=== PATIENT | male | born 1945 | race Caucasian/White ===

== ENCOUNTER → 2016-06-09 | Outpatient (CLI) | payer MEDICARE, OTHER ==
[~2016-06-09] MED LIST: HYDR12.56 PO; PRIN10TA PO
[2016-06-09 13:16] LABS: HEMATOCRIT 42.4 % (39.0-51.0); MEAN CELL VOLUME 90.2 FL (80.0-100.0); MEAN CORPUSCULAR HEMOGLOBIN 30.1 PG (27.0-34.0); MEAN CORPUSCULAR HGB CONC 33.4 % (32.0-36.0); PLATELET COUNT 264 TH/MM3 (150-450); RED CELL DISTRIBUTION WIDTH 13.9 % (11.6-17.2); REVIEW FLAG FINAL; WHITE BLOOD COUNT 10.1 TH/MM3 (4.0-11.0)
[2016-06-09 13:50] LABS: ALKALINE PHOSPHATASE 62 U/L (45-117); ALT (GPT) 17 U/L (12-78); ANION GAP 6 MEQ/L (5-15); AST (GOT) 15 U/L (15-37); BICARBONATE 29.9 MEQ/L (21.0-32.0); BLOOD UREA NITROGEN 21 MG/DL (7-18); CHLORIDE 105 MEQ/L (98-107); GLOMERULAR FILTRATION RATE 61 ML/MIN (>89); GLUCOSE,FASTING 86 MG/DL (74-99); LDL CHOLESTEROL 76 MG/DL (0-99); LDL CHOLESTEROL DIRECT 87 MG/DL (0-99); POTASSIUM 3.7 MEQ/L (3.5-5.1); SODIUM (NA) 141 MEQ/L (136-145); TOTAL BILIRUBIN ADULT 0.6 MG/DL (0.2-1.0)
[2016-06-09 14:30] LABS: HEMOGLOBIN A1a 0.8 %; HEMOGLOBIN A1b 1.9 %; HEMOGLOBIN Ao 84.5 %; HEMOGLOBIN LA1C 2.2 %; HEMOGLOBIN P3 4.2 %
== END ==
LOC: PLAB 09:53
PROVIDERS: ATTEND Family Medicine
DX: R53.83 Other fatigue (principal); E78.2 Mixed hyperlipidemia; I10 Essential (primary) hypertension; R73.01 Impaired fasting glucose; I73.9 Peripheral vascular disease, unspecified
CPT/HCPCS: 36415; 80053; 80061; 83036; 83721; 84443; 85027

== ENCOUNTER → 2016-06-22 | Outpatient (CLI) | payer MEDICARE, OTHER ==
[2016-06-22 17:13] LABS: HEMATOCRIT 44.2 % (39.0-51.0); MEAN CELL VOLUME 90.6 FL (80.0-100.0); MEAN CORPUSCULAR HEMOGLOBIN 30.3 PG (27.0-34.0); MEAN CORPUSCULAR HGB CONC 33.5 % (32.0-36.0); PLATELET COUNT 264 TH/MM3 (150-450); RED BLOOD COUNT 4.88 MIL/MM3 (4.50-5.90); RED CELL DISTRIBUTION WIDTH 13.9 % (11.6-17.2); REVIEW FLAG FINAL; WHITE BLOOD COUNT 6.6 TH/MM3 (4.0-11.0)
[2016-06-22 17:22] LABS: ALT (GPT) 17 U/L (12-78); ANION GAP 6 MEQ/L (5-15); AST (GOT) 19 U/L (15-37); BICARBONATE 29.3 MEQ/L (21.0-32.0); BLOOD UREA NITROGEN 13 MG/DL (7-18); CHLORIDE 106 MEQ/L (98-107); GLOMERULAR FILTRATION RATE 59 ML/MIN (>89); GLUCOSE,FASTING 87 MG/DL (74-99); POTASSIUM 4.2 MEQ/L (3.5-5.1); SODIUM (NA) 141 MEQ/L (136-145)
[2016-06-22 17:24] LABS: ALKALINE PHOSPHATASE 70 U/L (45-117); LDL CHOLESTEROL 80 MG/DL (0-99); LDL CHOLESTEROL DIRECT 91 MG/DL (0-99)
== END ==
LOC: PLAB 12:03
PROVIDERS: ATTEND Family Medicine
DX: E78.5 Hyperlipidemia, unspecified (principal); I10 Essential (primary) hypertension; I73.9 Peripheral vascular disease, unspecified
CPT/HCPCS: 36415; 80053; 80061; 83721; 85027

== ENCOUNTER 2017-11-20 11:38 | Inpatient (IN) ==
--- NOTE | 2017-11-20 12:28 | ED ---
HPI General Chief Complaint: Shortness of Breath/Dyspnea Stated Complaint: Sob Time Seen by Provider: 11/20/17 12:25 Source: patient Mode of arrival: ambulatory Limitations: no limitations History of Present Illness 72-year-old male patient with history of hypertension, CHF, CABG 3 2 months ago , had been taken off of his Lasix a week ago, presents to the ER today with 2 days history of worsening dyspnea on exertion, orthopnea, using 2 pillows, shortness of breath. He denies any fevers, chest pains, or other symptoms. He states it feels a little bit like how he was feeling before the surgery. Related Data Home Medications Medication Instructions Recorded Confirmed atorvastatin 10 mg PO DAILY 11/20/17 11/20/17 lisinopril 5 mg PO DAILY 11/20/17 11/20/17 Allergies Allergy/AdvReac Type Severity Reaction Status Date / Time No Known Allergies AdvReac Unknown Uncoded 08/18/17 15:50 Review of Systems ROS: all other systems reviewed are negative [facility] Medical History Medical History COPD (chronic obstructive pulmonary disease) (Acute) Congestive heart failure (Acute) Depression (Acute) HTN (hypertension) (Acute) Hypercholesteremia (Acute) PAD (peripheral artery disease) (Acute) Prediabetes (Acute) Surgical History Surgical History H/O Achilles tendon repair (Acute) Hx of tonsillectomy (Acute) Status post insertion of iliac artery stent (Acute) Social History Social History Substance History: Past History Second Hand Smoke Exposure: No Smoking Status: Former smoker Tobacco Type: Cigarettes How Often Do You Have a Drink Containing Alcohol: 2 to 3 times a week Recent Travel in [facility] within the Last 8 Weeks: No Recent Out of Country Travel within the Last 8 Weeks: No Substance Abuse Detail Marijuana: Substance Use Status: Early Remission Crack/Cocaine: Substance Use Status: Sustained Remission Immunization History Tetanus Immunization: Unsure Hx Influenza Vaccine This Season: No Exam Narrative Exam Narrative: GENERAL: Well-developed elderly white male patient currently in mild respiratory distress. Awake and oriented 3. SKIN: Focused skin assessment warm/dry. HEAD: Atraumatic. Normocephalic. EYES: Pupils equal and round. No scleral icterus. No injection or drainage. ENT: No nasal bleeding or discharge. Mucous membranes pink and moist. NECK: Trachea midline. No JVD. CARDIOVASCULAR: Regular rate and rhythm. No murmur appreciated. RESPIRATORY: Mild accessory muscle use. Bibasilar crackles. Breath sounds equal bilaterally. GASTROINTESTINAL: Abdomen soft, non-tender, nondistended. Hepatic and splenic margins not palpable. MUSCULOSKELETAL: No obvious deformities. No clubbing. No cyanosis. Trace bilateral pitting edema. NEUROLOGICAL: Awake and alert. No obvious cranial nerve deficits. Motor grossly within normal limits. Normal speech. PSYCHIATRIC: Appropriate mood and affect; insight and judgment normal. Course Initial Documented Vital Signs Temperature 98.0 F 11/20/17 11:48 Pulse Rate 92 H 11/20/17 11:48 Respiratory Rate 18 11/20/17 11:48 Blood Pressure 168/83 H 11/20/17 11:48 Pulse Oximetry 94 L 11/20/17 11:48 Last Documented Vital Signs Temperature 98.0 F 11/20/17 11:48 Pulse Rate 86 11/20/17 12:13 Respiratory Rate 18 11/20/17 12:13 Blood Pressure 192/90 H 11/20/17 12:13 Pulse Oximetry 97 11/20/17 12:30 Medical Decision Making MDM Narrative Medical decision making narrative: Chest x-ray is concerning for underlying CHF , BNP is 4000. Lasix was given in the ER. Planning to admit for further evaluation and treatment. Case is discussed with Dr. Mcbride for admission. Medical Screen Exam Complete: Yes Emergency Medical Condition: Yes Differential Diagnosis Differential Diagnosis: CHF exacerbation versus pneumonia versus COPD exacerbation Lab Data Lab results reviewed: Yes I reviewed the patient's lab results. Result diagrams: 11/20/17 12:15 11/20/17 12:15 Lab Results 11/20/17 11/20/17 11/20/17 Range/Units 12:15 12:15 12:15 WBC 8.8 (4.0-11.0) th/mm3 RBC 4.68 (4.50-5.90) mil/mm3 Hgb 14.3 (13.0-17.0) gm/dL Hct 43.0 (39.0-51.0) % MCV 91.9 (80.0-100.0) fL MCH 30.6 (27.0-34.0) pg MCHC 33.3 (32.0-36.0) % RDW 16.0 (11.6-17.2) % Plt Count 259 (150-450) th/mm3 MPV 9.7 (7.0-11.0) fL Neut % (Auto) 84.3 H (16.0-70.0) % Lymph % (Auto) 6.3 L (9.0-44.0) % [place] % (Auto) 8.3 H (0.0-8.0) % Eos % (Auto) 0.7 (0.0-4.0) % Baso % (Auto) 0.4 (0.0-2.0) % Neut # (Auto) 7.4 (1.8-7.7) th/mm3 Lymph # (Auto) 0.6 L (1.0-4.8) th/mm3 [place] # (Auto) 0.7 (0.0-0.9) th/mm3 Eos # (Auto) 0.1 (0.0-0.4) th/mm3 Baso # (Auto) 0.0 (0.0-0.2) th/mm3 WBC Differential . Differential Comment Auto diff final Sodium 143 (136-145) meq/L Potassium 4.0 (3.5-5.1) meq/L Chloride 112 H (98-107) meq/L Carbon Dioxide 24.1 (21.0-32.0) meq/L Anion Gap 7 (5-15) meq/L BUN 20 H (7-18) mg/dL Creatinine 1.04 (0.60-1.30) mg/dL Estimated GFR 70 L (>89) mL/min Random Glucose 102 (74-106) mg/dL Calcium 8.9 (8.5-10.1) mg/dL Total Bilirubin 1.0 (0.2-1.0) mg/dL AST 21 (15-37) U/L ALT 21 (12-78) U/L Alkaline Phosphatase 83 (45-117) U/L Troponin I 0.07 H (0.02-0.05) ng/mL B-Natriuretic Peptide 4363 H (0-100) pg/mL Total Protein 7.0 (6.4-8.2) g/dL Albumin 3.5 (3.4-5.0) g/dL Imaging Data Attestation: I personally reviewed and interpreted this imaging study as follows : Radiologist's impression: Chest X-Ray 11/20/17 12:04 CONCLUSION: Bibasilar infiltrates and effusions Discharge Plan Discharge Disposition Patient Disposition: 30 Still Patient Discharge Condition Condition: Stable Discharge Details Anticipated Discharge Date: 11/20/17 Diagnosis: CHF (congestive heart failure) Physicians Team ED Provider: Flor Weaver Primary Care Provider: Wilfredo Tsang Attending Provider: Kate Rivera Discharge Interventions Interventions: Vital Signs Last Done: 11/20/17 12:13 Status ED Status: Admitted Patient
[2017-11-20 12:30] LABS: Baso % (Auto) 0.4 % (0.0-2.0); Eos # (Auto) 0.1 th/mm3 (0.0-0.4); Eos % (Auto) 0.7 % (0.0-4.0); Hemoglobin 14.3 gm/dL (13.0-17.0); Lymph # (Auto) 0.6 th/mm3 (1.0-4.8); Lymph % (Auto) 6.3 % (9.0-44.0); Mean Corpuscular HGB Conc 33.3 % (32.0-36.0); Mean Corpuscular Hemoglobin 30.6 pg (27.0-34.0); Mean Corpuscular Volume 91.9 fL (80.0-100.0); Mean Platelet Volume 9.7 fL (7.0-11.0); Mono # (Auto) 0.7 th/mm3 (0.0-0.9); Mono % (Auto) 8.3 % (0.0-8.0); Neut # (Auto) 7.4 th/mm3 (1.8-7.7); Neut % (Auto) 84.3 % (16.0-70.0); Platelet Count 259 th/mm3 (150-450); Red Blood Count 4.68 mil/mm3 (4.50-5.90); White Blood Count 8.8 th/mm3 (4.0-11.0)
[2017-11-20 12:43] LABS: Alanine Aminotransferase 21 U/L (12-78); Albumin 3.5 g/dL (3.4-5.0); Anion Gap 7 meq/L (5-15); Aspartate Aminotransferase 21 U/L (15-37); Blood Urea Nitrogen 20 mg/dL (7-18); Calcium 8.9 mg/dL (8.5-10.1); Carbon Dioxide 24.1 meq/L (21.0-32.0); Chloride 112 meq/L (98-107); Glomerular Filtration Rate 70 mL/min (>89); Glucose,Random 102 mg/dL (74-106); Sodium 143 meq/L (136-145)
[2017-11-20 12:47] LABS: Alkaline Phosphatase 83 U/L (45-117); Troponin I 0.07 ng/mL (0.02-0.05)
--- NOTE | 2017-11-20 12:54 | XR ---
EXAM DATE: 11/20/2017 12:49 PM EDT AGE/SEX: 72 years / Male INDICATIONS: Short of breath. CLINICAL DATA: This is the patient's initial encounter. Patient reports that signs and symptoms have been present for 2 days and indicates a pain score of 0/10. MEDICAL/SURGICAL HISTORY: . Hypertension. Chronic obstructive pulmonary disease. Hypercholester olemia. CABG. Triple bypass 2 months ago. COMPARISON: [facility] – [place], CHEST SINGLE AP, 08/31/2017. . FINDINGS: Mild bibasilar infiltrates are present with small associated effusions. Cardiac contours are grossly stable. CONCLUSION: Bibasilar infiltrates and effusions Electronically signed by: Curtis Hill MD 11/20/2017 12:53 PM EDT
--- NOTE | 2017-11-20 15:31 | P.HPIM ---
History of Present Illness Service: [facility] hospitalist Primary Care Physician: Wilfredo Tsang MD Chief Complaint: Shortness of breath History of Present Illness: 71-year-old male with a medical history significant for coronary artery disease status post CABG 3 months ago, CHF, hypertension, hyperlipidemia. The patient was discharged 3 months ago after CABG with a LifeVest. Patient was discharged on amiodarone, lisinopril, metoprolol, and Lasix. He reports that he has been feeling well and was taken off metoprolol and Lasix about a week ago. Over the past 2 days, he has been getting progressively short of breath which prompted the emergency room visit. Regarding his LifeVest, he reports that he wears it at night and whenever he goes out. He has not had a follow-up with cardiology since discharge from the hospital. Currently he denies chest pressure. Workup in the emergency room consisted with acute systolic CHF. He has been given Lasix in the emergency room. - Diagnosis (1) Acute on chronic systolic CHF (congestive heart failure) (2) Hypertension (3) CAD (coronary artery disease) (4) CHF (congestive heart failure) Inpatient Certification: I certify that the inpatient services were ordered in accordance with Medicare regulations governing the order. This includes certification that hospital inpatient services are reasonable and necessary and in the case of services not specified as inpatient-only under 42 CFR 419.22(n), that they are appropriately provided as inpatient services in accordance to with the 2-midnight benchmark under 43 CFR 412.3(e) Estimated Total Length of Stay (Days): 3 Plans for Post Hospital Care: Home Review of Systems All other systems reviewed negative except as stated in HPI Cardiovascular: Reports leg swelling, Reports shortness of breath when lying down Respiratory: Reports shortness of breath PMFSH - History History Provided By: Patient - Medical History Medical History: Medical History (Last Reviewed 11/20/17 @ 15:31 by Kate Rivera MD) COPD (chronic obstructive pulmonary disease) Congestive heart failure Depression HTN (hypertension) Hypercholesteremia PAD (peripheral artery disease) Prediabetes - Surgical History Surgical History: Surgical History (Last Reviewed 11/20/17 @ 15:31 by Kate Rivera MD) H/O Achilles tendon repair History of coronary artery bypass graft x 3 Hx of tonsillectomy Status post insertion of iliac artery stent - Family History Family History: Family History (Last Updated 11/20/17 @ 15:31 by Kate Rivera MD) Other Family history non-contributory - Tobacco History Second Hand Smoke Exposure: No Tobacco Use In Past 30 Days: Yes Smoking Status: Former smoker Tobacco Type: Cigarettes - Alcohol History How Often Do You Have a Drink Containing Alcohol: 2 to 3 times a week - Substance Use History Substance History: Past History - Substance Use Type 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 - Travel History Recent Travel in the [place] Within the Last 8 Weeks: No Recent Travel Out of the Country Within the Last 8 Weeks: No - Immunization History Tetanus Immunization: Unsure Hx Influenza Vaccine This Season: No Medications and Allergies Active Medications: Active Medications Atorvastatin Calcium (Lipitor) 10 mg PO DAILY KENROY Enalaprilat (Vasotec Inj) 1.25 mg IV.PUSH Q6H PRN PRN Reason: SEE LABEL COMMENTS Furosemide (Lasix Inj) 40 mg IV.PUSH BID@0900,1800 K[facility]Y Heparin Sodium (Porcine) (Heparin Inj) 5,000 units SQ Q12H K[facility]Y Lisinopril (Prinivil) 5 mg PO DAILY K[facility]ROY Lisinopril (Prinivil) 5 mg PO ONCE ONE Stop: 11/20/17 14:18 Metoprolol Tartrate (Lopressor) 25 mg PO BID K[facility]ROY Potassium Chloride (Kcl) 10 meq PO BID KENROY Sodium Chloride (Ns Flush) 2 ml IV.FLUSH BID KENROY Sodium Chloride (Ns Flush) 2 ml IV.FLUSH UNSCH PRN PRN Reason: FLUSH AFTER USING IV ACCESS Allergies Allergy/AdvReac Type Severity Reaction Status Date / Time No Known Allergies AdvReac Unknown Uncoded 08/18/17 15:50 Home Medications Medication Instructions Recorded Confirmed Type atorvastatin 10 mg PO DAILY 11/20/17 11/20/17 History lisinopril 5 mg PO DAILY 11/20/17 11/20/17 History Exam Vital signs: Vital Signs 11/20/17 11:48 11/20/17 12:13 11/20/17 12:30 Temperature 98.0 F Pulse Rate 92 H 78 Respiratory Rate 18 18 Blood Pressure 168/83 H 192/90 H Pulse Oximetry 94 L 97 97 11/20/17 14:12 Temperature Pulse Rate 82 Respiratory Rate 18 Blood Pressure 184/100 H Pulse Oximetry Intake & Output 11/19/17 11/20/17 11/20/17 18:59 06:59 18:59 Weight 58.967 kg Narrative: CONSTITUTIONAL/GENERAL: This is an adequately nourished patient, in no apparent distress. Vital signs reviewed SKIN: No jaundice, rashes, or concerning lesions. Not diaphoretic. HEAD: Atraumatic. Normocephalic. EYES: Pupils equal and round and reactive. Extra ocular motions are intact. No scleral icterus. No injection or drainage. ENT: Hearing grossly normal. Nose without drainage. Throat without visible erythema, exudates, masses, or lesions. NECK: Trachea midline. Neck is supple, non-tender. No palpable thyroid enlargement or nodularity. CARDIOVASCULAR: Normal rate and regular rhythm without murmurs, gallops, or rubs. No JVD. Peripheral pulses 2+ and symmetric. RESPIRATORY/CHEST: Symmetric, unlabored respirations. Bilateral basilar crackles. No wheezing. GASTROINTESTINAL: Abdomen soft, non-tender, non-distended. No hepato- splenomegaly, or palpable masses. No guarding. Bowel sounds present. MUSCULOSKELETAL: Extremities without clubbing, cyanosis, or edema. No joint tenderness or effusion noted. No calf tenderness. No mottling or clubbing. NEUROLOGICAL: Awake and alert. Motor and sensory grossly within normal limits. Follows commands. Move all extremities spontaneously. No focal deficits. PSYCHIATRIC: No obvious mood problems. No apparent hallucinations or other psychotic thought process. Results - Labs CBC & Chem 7: 11/20/17 12:15 11/20/17 12:15 Labs: Short CBC 11/20/17 Range/Units 12:15 WBC 8.8 (4.0-11.0) th/mm3 Hgb 14.3 (13.0-17.0) gm/dL Hct 43.0 (39.0-51.0) % Plt Count 259 (150-450) th/mm3 BMP 11/20/17 12:15 Sodium 143 Potassium 4.0 Chloride 112 H Carbon Dioxide 24.1 BUN 20 H Creatinine 1.04 Calcium 8.9 Cardiac Enzymes 11/20/17 Range/Units 12:15 Troponin I 0.07 H (0.02-0.05) ng/mL Liver Function 11/20/17 Range/Units 12:15 Total Bilirubin 1.0 (0.2-1.0) mg/dL AST 21 (15-37) U/L ALT 21 (12-78) U/L Alkaline Phosphatase 83 (45-117) U/L Albumin 3.5 (3.4-5.0) g/dL - Imaging Impressions Chest X-Ray 11/20/17 12:04 CONCLUSION: Bibasilar infiltrates and effusions Caprini VTE Risk Assessment Caprini VTE Risk Assessment: Moderate/High Risk (score >= 2) Caprini Risk Assessment Model: Point Value = 1 Point Value = 2 Point Value = 3 Point Value = 5 Age 41-60 Minor surgery BMI > 25 kg/m2 Swollen legs Varicose veins or History of unexplained or recurrent spontaneous Oral contraceptives or hormone replacement Sepsis (< 1 month) Serious lung disease, including pneumonia (< 1 month) Abnormal pulmonary function Acute myocardial infarction Congestive heart failure (< 1 month) History of inflammatory bowel disease Medical patient at bed rest Age 61-74 Arthroscopic surgery Major open surgery (> 45 min) Laparoscopic surgery (> 45 min) Malignancy Confined to bed (> 72 hours) Immobilizing plaster cast Central venous access Age >= 75 History of VTE Family history of VTE Factor V Leiden Prothrombin [id number] Lupus anticoagulant Anticardiolipin antibodies Elevated serum homocysteine Heparin-induced thrombocytopenia Other congenital or acquired thrombophilia Stroke (< 1 month) Elective arthroplasty Hip, pelvis, or leg fracture Acute spinal cord injury (< 1 month) Prophylaxis Regimen: Total Risk Factor Score Risk Level Prophylaxis Regimen 0-1 Low Early ambulation 2 Moderate Order ONE of the following: *Sequential Compression Device (SCD) *Heparin 5000 units SQ BID 3-4 Higher Order ONE of the following medications: *Heparin 5000 units SQ TID *Enoxaparin/Lovenox 40 mg SQ daily (WT < 150 kg, CrCl > 30 mL/min) *Enoxaparin/Lovenox 30 mg SQ daily (WT < 150 kg, CrCl > 10-29 mL/min) *Enoxaparin/Lovenox 30 mg SQ BID (WT < 150 kg, CrCl > 30 mL/min) AND/OR *Sequential Compression Device (SCD) 5 or more Highest Order ONE of the following medications: *Heparin 5000 units SQ TID (Preferred with Epidurals) *Enoxaparin/Lovenox 40 mg SQ daily (WT < 150 kg, CrCl > 30 mL/min) *Enoxaparin/Lovenox 30 mg SQ daily (WT < 150 kg, CrCl > 10-29 mL/min) *Enoxaparin/Lovenox 30 mg SQ BID (WT < 150 kg, CrCl > 30 mL/min) AND *Sequential Compression Device (SCD) Assessment and Plan - Assessment (1) Acute on chronic systolic CHF (congestive heart failure) Code(s): I50.23 - Acute on chronic systolic (congestive) heart failure Status : Acute (2) Hypertension Code(s): I10 - Essential (primary) hypertension Status: Acute (3) CAD (coronary artery disease) Code(s): I25.10 - Atherosclerotic heart disease of [place] coronary artery without angina pectoris Status: Acute (4) CHF (congestive heart failure) Code(s): I50.9 - Heart failure, unspecified Status: Acute - Plan 72-year-old male with: Acute on chronic systolic CHF/History of CABGX3: Patient states his primary care physician took him off Lasix, metoprolol about a week ago. -Lasix IV 40 mg twice daily -Supplemental oxygen as needed -Restart metoprolol 25 mg twice daily. Lisinopril 5 mg daily. Continue statin -Patient has a LifeVest. Advised him to be compliant. -Consult his biochemical engineer Dr. whitaker. Accelerated hypertension: -Patient restarted on metoprolol and Lasix. Continue lisinopril. -Vasotec as needed. -Monitor trend and adjust antihypertensives as needed. GI prophylaxis: Stool softener PRN constipation. DVT PPx: Heparin Discussed Condition With: Dr. Godinez, ER physician
[2017-11-20] MEDS ORDERED: Lisinopril 5 MG Tablet PO ONE (16:00)
[2017-11-20] MEDS: Heparin - SQ 10,000 UNITS/ML Vial SQ SCH (16:53)
[2017-11-20] MEDS: Potassium Chloride 10 MEQ ER Capsule PO SCH (21:11)
[2017-11-20] MEDS: Metoprolol Tartrate 25 MG Tablet PO SCH (21:11)
[2017-11-21] MEDS: Heparin - SQ 10,000 UNITS/ML Vial SQ SCH ×2 (04:20→16:22)
[2017-11-21] MEDS ORDERED: Lisinopril 5 MG Tablet PO SCH (09:00)
--- NOTE | 2017-11-21 09:36 | P.PNIM ---
Subjective Interval history: Patient is significantly better today. He reports he is breathing much more comfortable with ambulation. Physical Exam Vital signs: Vital Signs 11/20/17 11:48 11/20/17 12:13 11/20/17 12:30 Temperature 98.0 F Pulse Rate 92 H 78 Respiratory Rate 18 18 Blood Pressure 168/83 H 192/90 H Pulse Oximetry 94 L 97 97 11/20/17 14:12 11/20/17 15:00 11/20/17 20:00 Temperature 97.8 F Pulse Rate 82 83 70 Respiratory Rate 18 18 16 Blood Pressure 184/100 H 194/95 H 154/81 H Pulse Oximetry 95 11/21/17 00:00 11/21/17 00:42 11/21/17 01:26 Temperature 97.9 F Pulse Rate 71 68 73 Respiratory Rate 16 Blood Pressure 127/72 Pulse Oximetry 11/21/17 02:00 11/21/17 03:00 11/21/17 04:00 Temperature 97.8 F Pulse Rate 69 69 64 Respiratory Rate 16 Blood Pressure 139/83 Pulse Oximetry 11/21/17 05:00 11/21/17 06:00 11/21/17 07:00 Temperature 97.9 F Pulse Rate 76 70 75 Respiratory Rate 16 Blood Pressure 138/82 Pulse Oximetry 94 L 11/21/17 08:00 Temperature Pulse Rate Respiratory Rate Blood Pressure Pulse Oximetry 94 L Intake & Output 11/20/17 11/21/17 11/21/17 18:59 06:59 18:59 Output Total 350 / 350 Balance -350 / -350 Weight 58.967 kg 63 kg Output: Urine 350 / 350 Other: # Voids 2 Date of Last Bowel Movement 11/21/17 Results - Labs CBC & Chem 7: 11/20/17 12:15 11/20/17 12:15 Laboratory Results - last 24 hr 11/20/17 11/20/17 11/20/17 12:15 12:15 12:15 WBC 8.8 RBC 4.68 Hgb 14.3 Hct 43.0 MCV 91.9 MCH 30.6 MCHC 33.3 RDW 16.0 Plt Count 259 MPV 9.7 Neut % (Auto) 84.3 H Lymph % (Auto) 6.3 L [place] % (Auto) 8.3 H Eos % (Auto) 0.7 Baso % (Auto) 0.4 Neut # (Auto) 7.4 Lymph # (Auto) 0.6 L [place] # (Auto) 0.7 Eos # (Auto) 0.1 Baso # (Auto) 0.0 WBC Differential . Differential Comment Auto diff final Sodium 143 Potassium 4.0 Chloride 112 H Carbon Dioxide 24.1 Anion Gap 7 BUN 20 H Creatinine 1.04 Estimated GFR 70 L Random Glucose 102 Calcium 8.9 Total Bilirubin 1.0 AST 21 ALT 21 Alkaline Phosphatase 83 Troponin I 0.07 H B-Natriuretic Peptide 4363 H Total Protein 7.0 Albumin 3.5 - Imaging Impressions Chest X-Ray 11/20/17 12:04 CONCLUSION: Bibasilar infiltrates and effusions Assessment and Plan - Assessment (1) Acute on chronic systolic CHF (congestive heart failure) Code(s): I50.23 - Acute on chronic systolic (congestive) heart failure Status : Acute (2) Hypertension Code(s): I10 - Essential (primary) hypertension Status: Acute (3) CAD (coronary artery disease) Code(s): I25.10 - Atherosclerotic heart disease of [place] coronary artery without angina pectoris Status: Acute (4) CHF (congestive heart failure) Code(s): I50.9 - Heart failure, unspecified Status: Acute - Plan 72-year-old male with: Acute on chronic systolic CHF/History of CABGX3: Patient states his primary care physician took him off Lasix, metoprolol about a week ago. -Continue Lasix IV 40 mg twice daily. Good response -Supplemental oxygen as needed -Restarted metoprolol 25 mg twice daily. Lisinopril 5 mg daily. Continue statin -Patient has a LifeVest. Advised him to be compliant. -Awaiting [employer] input, Dr. Jarrell. Accelerated hypertension: -Patient restarted on metoprolol and Lasix. Continue lisinopril. -Vasotec as needed. -Monitor trend and adjust antihypertensives as needed. - BP currently adequate GI prophylaxis: Stool softener PRN constipation. DVT PPx: Heparin Discharge Planning: Awaiting input from Cardiology.
[2017-11-21] MEDS: Metoprolol Tartrate 25 MG Tablet PO SCH ×2 (09:52→21:09)
[2017-11-21] MEDS: Potassium Chloride 10 MEQ ER Capsule PO SCH ×2 (09:52→21:08)
--- NOTE | 2017-11-21 15:25 | P.CONCA ---
History of Present Illness Service: Cardiology Consult date: 11/21/17 Requesting Physician: Kate Rivera Reason for Consult: Acute on chronic congestive heart failure Primary Care Provider: Wilfredo Tsang MD Chief Complaint: Shortness of breath History of Present Illness: This is a 71-year-old male with a medical history of coronary artery disease, status post CABG 3 months ago, congestive heart failure, hypertension and hyperlipidemia. When he was discharged 3 months ago, post CABG, he was sent home with a LifeVest, but he states he only wears it at night or when he goes out. He states that approximately a week ago his primary care doctor took him off metoprolol and Lasix and over the last 2 days he has been getting progressively short of breath, he decided to go to the emergency department for further evaluation. Review of Systems All other systems reviewed negative except as stated in HPI PMFSH - History History Provided By: Patient - Medical History Medical History: Medical History (Last Reviewed 11/20/17 @ 15:31 by Kate Rivera MD) COPD (chronic obstructive pulmonary disease) Congestive heart failure Depression HTN (hypertension) Hypercholesteremia PAD (peripheral artery disease) Prediabetes - Surgical History Surgical History: Surgical History (Last Reviewed 11/20/17 @ 15:31 by Kate Rivera MD) H/O Achilles tendon repair History of coronary artery bypass graft x 3 Hx of tonsillectomy Status post insertion of iliac artery stent - Family History Family History: Family History (Last Updated 11/20/17 @ 15:31 by Kate Rivera MD) Other Family history non-contributory - Tobacco History Second Hand Smoke Exposure: No Tobacco Use In Past 30 Days: Yes Smoking Status: Former smoker Tobacco Type: Cigarettes - Alcohol History How Often Do You Have a Drink Containing Alcohol: 2 to 3 times a week - Substance Use History Substance History: Past History - Substance Use Type 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 - Travel History Recent Travel in the [place] Within the Last 8 Weeks: No Recent Travel Out of the Country Within the Last 8 Weeks: No - Immunization History Tetanus Immunization: Unsure Hx Influenza Vaccine This Season: No Medications and Allergies Allergies Allergy/AdvReac Type Severity Reaction Status Date / Time No Known Allergies AdvReac Unknown Uncoded 08/18/17 15:50 Home Medications Medication Instructions Recorded Confirmed Type atorvastatin 10 mg PO DAILY 11/20/17 11/20/17 History lisinopril 5 mg PO DAILY 11/20/17 11/20/17 History Active Medications: Active Medications Atorvastatin Calcium (Lipitor) 10 mg PO DAILY [facility] Last Admin: 11/21/17 09:52 Dose: 10 mg Furosemide (Lasix Inj) 40 mg IV.PUSH BID@0900,1800 [facility] Last Admin: 11/21/17 09:56 Dose: 40 mg Heparin Sodium (Porcine) (Heparin Inj) 5,000 units SQ Q12H [facility] Last Admin: 11/21/17 04:20 Dose: 5,000 units Losartan Potassium (Cozaar) 25 mg PO ONCE ONE Stop: 11/22/17 09:01 Metoprolol Tartrate (Lopressor) 25 mg PO BID [facility] Last Admin: 11/21/17 09:52 Dose: 25 mg Potassium Chloride (Kcl) 10 meq PO BID [facility] Last Admin: 11/21/17 09:52 Dose: 10 meq Sacubitril/Valsartan (Entresto 24 Mg/26 Mg Tablet) 1 tab PO BID [facility] Sodium Chloride (Ns Flush) 2 ml IV.FLUSH BID [facility] Last Admin: 11/21/17 09:53 Dose: 2 ml Sodium Chloride (Ns Flush) 2 ml IV.FLUSH UNSCH PRN PRN Reason: FLUSH AFTER USING IV ACCESS Exam Vital signs: Vital Signs 11/20/17 20:00 11/21/17 00:00 11/21/17 00:42 Temperature 97.8 F 97.9 F Pulse Rate 70 71 68 Respiratory Rate 16 16 Blood Pressure 154/81 H 127/72 Pulse Oximetry 95 11/21/17 01:26 11/21/17 02:00 11/21/17 03:00 Temperature 97.8 F Pulse Rate 73 69 69 Respiratory Rate 16 Blood Pressure 139/83 Pulse Oximetry 11/21/17 04:00 11/21/17 05:00 11/21/17 06:00 Temperature Pulse Rate 64 76 70 Respiratory Rate Blood Pressure Pulse Oximetry 11/21/17 07:00 11/21/17 08:00 11/21/17 09:00 Temperature 97.9 F Pulse Rate 75 63 55 L Respiratory Rate 16 Blood Pressure 138/82 Pulse Oximetry 94 L 94 L 11/21/17 10:00 11/21/17 11:00 11/21/17 12:00 Temperature 98 F Pulse Rate 69 65 65 Respiratory Rate 16 Blood Pressure 111/60 Pulse Oximetry 97 11/21/17 13:00 Temperature Pulse Rate 62 Respiratory Rate Blood Pressure Pulse Oximetry Intake & Output 11/20/17 11/21/17 11/21/17 18:59 06:59 18:59 Output Total 350 / 350 Balance -350 / -350 Weight 58.967 kg 63 kg Output: Urine 350 / 350 Other: # Voids 2 Date of Last Bowel Movement 11/21/17 - Constitutional no acute distress - Routine HEENT Exam Head: Present: normocephalic Eye: Present: PERRL ENT: Present: mucous membranes moist - Routine Neck Exam Present: full ROM - Routine Respiratory Exam Present: CTA bilaterally - Routine Cardiovascular Exam Present: S1, S2. Absent: murmur, gallop, rubs, S3, S4 - Routine Abdominal Exam Present: soft, normoactive bowel sounds - Routine Extremities Exam Present: full ROM, pulses intact, normal capillary refill. Absent: cyanosis, clubbing, edema - Routine Skin Exam Present: intact - Routine Neurological Exam Present: oriented X3 Results 11/20/17 12:15 11/20/17 12:15 Intake and Output 11/21/17 11/21/17 11/21/17 06:59 14:59 22:59 Output Total 350 / 350 Balance -350 / -350 Output: Urine 350 / 350 Other: # Voids 2 Date of Last Bowel Movement 11/21/17 Weight 63 kg Assessment and Plan - Assessment (1) CHF (congestive heart failure) Code(s): I50.9 - Heart failure, unspecified Status: Acute (2) Hypertension Code(s): I10 - Essential (primary) hypertension Status: Acute (3) CAD (coronary artery disease) Code(s): I25.10 - Atherosclerotic heart disease of [place] coronary artery without angina pectoris Status: Acute (4) Acute on chronic systolic CHF (congestive heart failure) Code(s): I50.23 - Acute on chronic systolic (congestive) heart failure Status : Acute - Plan Due to patient having congestive heart failure, will get a 2D echo to evaluate left ventricular function. We will start patient on therapy for congestive heart failure by discontinuing the lisinopril today, give losartan tomorrow then on 23 November start him on entresto after 36 hour washout from the lisinopril. Patient has already been restarted on his metoprolol and Lasix. Obtain baseline kidney function. We will continue with cardiac treatment plan and adjust as needed. We will follow during hospitalization. The patient was seen and evaluated by Dr. Duncan who participated in care, management and decision-making. - Attending Attestation Patient seen and examined. I reviewed and agree with the evaluation and plan as presented. Continue and titrate therapy for CHF. Check echo.
--- NOTE | 2017-11-21 19:58 | ECG ---
Date Performed: 11/20/2017 Time Performed: 14:39:46 PTAGE: 72 years EKG: Sinus rhythm WITH OCCASIONAL SUPRAVENTRICULAR PREMATURE COMPLEXES POSSIBLE LEFT ATRIAL ENLARGEMENT BORDERLINE RIG HT AXIS DEVIATION MODERATE INTRAVENTRICULAR CONDUCTION DELAY ST DEVIATION AND MARKED T-WAVE ABNORMALI TY, CONSIDER LATERAL ISCHEMIA ABNORMAL ECG PREVIOUS TRACING :08/24/2017 @04.27 Since the previous tracing, no significant change noted DOCTOR: Stuart Aguilar Interpretating Date/Time 11/21/2017 19:55:01
[2017-11-22] MEDS: Heparin - SQ 10,000 UNITS/ML Vial SQ SCH ×2 (03:16→17:29)
[2017-11-22] MEDS: Potassium Chloride 10 MEQ ER Capsule PO SCH ×2 (08:57→21:31)
[2017-11-22] MEDS: Metoprolol Tartrate 25 MG Tablet PO SCH ×2 (08:58→21:32)
--- NOTE | 2017-11-22 13:51 | P.PNCA ---
Subjective Interval history: Patient denies any chest pain, pressure, palpitations, dizziness, edema or shortness of breath. Physical Exam Vital signs: Vital Signs 11/21/17 14:00 11/21/17 15:00 11/21/17 16:00 Temperature 98.1 F Pulse Rate 64 70 72 Respiratory Rate 17 Blood Pressure 125/82 Pulse Oximetry 96 11/21/17 17:00 11/21/17 17:16 11/21/17 18:00 Temperature Pulse Rate 72 72 Respiratory Rate Blood Pressure Pulse Oximetry 97 11/21/17 19:00 11/21/17 20:00 11/21/17 21:00 Temperature 97.4 F L Pulse Rate 70 70 66 Respiratory Rate 28 H Blood Pressure 150/73 H Pulse Oximetry 94 L 11/21/17 22:00 11/21/17 23:00 11/22/17 00:00 Temperature 97.8 F Pulse Rate 78 75 62 Respiratory Rate 24 Blood Pressure 123/72 Pulse Oximetry 11/22/17 01:00 11/22/17 02:00 11/22/17 03:00 Temperature 98.2 F Pulse Rate 60 71 60 Respiratory Rate 24 Blood Pressure 141/67 H Pulse Oximetry 95 11/22/17 04:00 11/22/17 05:00 11/22/17 06:00 Temperature Pulse Rate 62 66 71 Respiratory Rate Blood Pressure Pulse Oximetry 11/22/17 07:00 11/22/17 09:00 11/22/17 10:00 Temperature 97.5 F L Pulse Rate 62 70 55 L Respiratory Rate 16 Blood Pressure 145/77 H Pulse Oximetry 95 11/22/17 11:00 11/22/17 11:49 11/22/17 12:00 Temperature 98.3 F Pulse Rate 59 L 68 Respiratory Rate 16 Blood Pressure 117/55 L Pulse Oximetry 97 97 11/22/17 12:55 Temperature Pulse Rate 71 Respiratory Rate Blood Pressure Pulse Oximetry Intake & Output 11/21/17 11/22/17 11/22/17 18:59 06:59 18:59 Intake Total 1200 / 1200 720 / 720 Output Total 750 / 750 1400 / 1400 Balance 450 / 450 -680 / -680 Weight 63.5 kg Intake: Oral 1200 / 1200 720 / 720 Output: Urine 750 / 750 1400 / 1400 Other: Date of Last Bowel Movement 11/21/17 - Constitutional no acute distress - Routine HEENT Exam Head: Present: normocephalic Eye: Present: PERRL ENT: Present: mucous membranes moist - Routine Neck Exam Present: full ROM - Routine Respiratory Exam Present: CTA bilaterally - Routine Cardiovascular Exam Present: S1, S2. Absent: gallop, rubs - Routine Abdominal Exam Present: soft - Routine Extremities Exam Present: full ROM, pulses intact, normal capillary refill. Absent: cyanosis, clubbing, edema - Routine Skin Exam Present: intact - Routine Neurological Exam Present: oriented X3 - Detailed Neurological Exam: Coma Scale Eye Opening: Spontaneous Verbal Response: Oriented Motor Response: Obey commands Coleen Coma Scale Total: 15 - Routine Psychiatric Exam Present: normal affect Assessment and Plan - Assessment (1) CHF (congestive heart failure) Code(s): I50.9 - Heart failure, unspecified Status: Acute (2) Hypertension Code(s): I10 - Essential (primary) hypertension Status: Acute (3) CAD (coronary artery disease) Code(s): I25.10 - Atherosclerotic heart disease of [place] coronary artery without angina pectoris Status: Acute (4) Acute on chronic systolic CHF (congestive heart failure) Code(s): I50.23 - Acute on chronic systolic (congestive) heart failure Status : Acute - Plan Continue Life Vest. Continue and titrate tx for CHF. 2D echo has been completed awaiting interpretation. We will continue with cardiac treatment plan and adjust as needed. We will follow during hospitalization. The patient was seen and evaluated by Dr. Duncan who participated in care, management and decision-making. - Attending Attestation Patient seen and examined. I reviewed and agree with the evaluation and plan as presented. Continue tx for CHF.
--- NOTE | 2017-11-22 14:04 | P.PNIM ---
Subjective Interval history: Patient says he is feeling all right. Denies any chest pain shortness of breath. Says he is homeless. Physical Exam Vital signs: Vital Signs 11/21/17 15:00 11/21/17 16:00 11/21/17 17:00 Temperature 98.1 F Pulse Rate 70 72 72 Respiratory Rate 17 Blood Pressure 125/82 Pulse Oximetry 96 11/21/17 17:16 11/21/17 18:00 11/21/17 19:00 Temperature 97.4 F L Pulse Rate 72 70 Respiratory Rate 28 H Blood Pressure 150/73 H Pulse Oximetry 97 11/21/17 20:00 11/21/17 21:00 11/21/17 22:00 Temperature Pulse Rate 70 66 78 Respiratory Rate Blood Pressure Pulse Oximetry 94 L 11/21/17 23:00 11/22/17 00:00 11/22/17 01:00 Temperature 97.8 F Pulse Rate 75 62 60 Respiratory Rate 24 Blood Pressure 123/72 Pulse Oximetry 11/22/17 02:00 11/22/17 03:00 11/22/17 04:00 Temperature 98.2 F Pulse Rate 71 60 62 Respiratory Rate 24 Blood Pressure 141/67 H Pulse Oximetry 95 11/22/17 05:00 11/22/17 06:00 11/22/17 07:00 Temperature 97.5 F L Pulse Rate 66 71 62 Respiratory Rate 16 Blood Pressure 145/77 H Pulse Oximetry 95 11/22/17 09:00 11/22/17 10:00 11/22/17 11:00 Temperature 98.3 F Pulse Rate 70 55 L 59 L Respiratory Rate 16 Blood Pressure 117/55 L Pulse Oximetry 97 11/22/17 11:49 11/22/17 12:00 11/22/17 12:55 Temperature Pulse Rate 68 71 Respiratory Rate Blood Pressure Pulse Oximetry 97 Intake & Output 11/21/17 11/22/17 11/22/17 18:59 06:59 18:59 Intake Total 1200 / 1200 720 / 720 Output Total 750 / 750 1400 / 1400 Balance 450 / 450 -680 / -680 Weight 63.5 kg Intake: Oral 1200 / 1200 720 / 720 Output: Urine 750 / 750 1400 / 1400 Other: Date of Last Bowel Movement 11/21/17 Narrative: GENERAL: Sitting up in bed. Appears comfortable. Alert and oriented 3. SKIN: Warm and dry. HEAD: Normocephalic. EYES: No scleral icterus. No injection or drainage. NECK: Supple, trachea midline. No JVD. CARDIOVASCULAR: Regular rate and rhythm without murmurs, gallops, or rubs. RESPIRATORY: Breath sounds equal bilaterally. No accessory muscle use. GASTROINTESTINAL: Abdomen soft, non-tender, nondistended. MUSCULOSKELETAL: No cyanosis, or edema. BACK: Nontender without obvious deformity. No CVA tenderness. Results - Labs CBC & Chem 7: 11/20/17 12:15 11/20/17 12:15 Assessment and Plan - Assessment (1) Acute on chronic systolic CHF (congestive heart failure) Code(s): I50.23 - Acute on chronic systolic (congestive) heart failure Status : Acute (2) Hypertension Code(s): I10 - Essential (primary) hypertension Status: Acute (3) CAD (coronary artery disease) Code(s): I25.10 - Atherosclerotic heart disease of [place] coronary artery without angina pectoris Status: Acute (4) CHF (congestive heart failure) Code(s): I50.9 - Heart failure, unspecified Status: Acute - Plan 72-year-old male with: //Acute on chronic systolic CHF/History of CABGX3: Patient states his primary care physician took him off Lasix, metoprolol about a week ago. -Continue Lasix IV 40 mg twice daily. Good response -Supplemental oxygen as needed -Restarted metoprolol 25 mg twice daily. Lisinopril 5 mg daily. Continue statin -Patient has a LifeVest. Advised him to be compliant. -Awaiting Mold Mechanic input, Dr. Whitaker. = 11/22. Discussed with Dr. whitaker. Awaiting results of echocardiogram. Cardiology will see and clear for discharge likely tomorrow. //Accelerated hypertension: -Patient restarted on metoprolol and Lasix. Continue lisinopril. -Vasotec as needed. -Monitor trend and adjust antihypertensives as needed. - BP currently adequate //GI prophylaxis: Stool softener PRN constipation. DVT PPx: Heparin Discharge Planning: Discharge home likely tomorrow when cleared by cardiology.
--- NOTE | 2017-11-22 14:33 | ECHRPT ---
Indication: HEART FAILURE CONCLUSIONS The left ventricular systolic function is severely reduced with an estimated ejection fraction less than 20%. Moderately dilated left ventricle. Wall thickness is normal. There is global hypokinesis. There is trace tricuspid valve regurgitation. The estimated pulmonary arterial pressure is 22 mmHg. Possibly very small, mainly posterior, pericardial effusion. BP: / HR: Rhythm: Sinus Technical Quality:Good FINDINGS LEFT VENTRICLE The left ventricular systolic function is severely reduced with an estimated ejection fraction less than 20%. Moderately dilated left ventricle. Wall thickness is normal. There is global left ventricular dysfun ction. RIGHT VENTRICLE Normal right ventricular size and systolic function. LEFT ATRIUM The left atrial size is normal. RIGHT ATRIUM The right atrial size is normal. ATRIAL SEPTUM Normal atrial septal thickness without atrial level shunting by limited color doppler interrogation. AORTA The aortic root and proximal ascending aorta are normal in size on limited imaging. MITRAL VALVE Structurally normal mitral valve. No mitral valve stenosis or regurgitation. AORTIC VALVE Trileaflet aortic valve. Aortic valve sclerosis is present. TRICUSPID VALVE Structurally normal tricuspid valve. There is trace tricuspid valve regurgitation. The estimated pulmonary arterial pressure is 22 mmHg. PULMONARY VALVE Trivial pulmonary valve regurgitation. VESSELS The inferior vena cava is normal in size. PERICARDIUM Possibly very small mainly posterior pericardial effusion. Jaden Mata MD (Electronically Signed) Final Date:22 November 2017 14:33
[2017-11-23] MEDS: Heparin - SQ 10,000 UNITS/ML Vial SQ SCH (03:43)
[2017-11-23 05:18] LABS: Baso % (Auto) 0.8 % (0.0-2.0); Eos # (Auto) 0.2 th/mm3 (0.0-0.4); Hematocrit 45.9 % (39.0-51.0); Hemoglobin 15.3 gm/dL (13.0-17.0); Lymph # (Auto) 1.1 th/mm3 (1.0-4.8); Mean Corpuscular HGB Conc 33.3 % (32.0-36.0); Mean Corpuscular Hemoglobin 30.4 pg (27.0-34.0); Mean Corpuscular Volume 91.5 fL (80.0-100.0); Mean Platelet Volume 10.1 fL (7.0-11.0); Mono # (Auto) 0.6 th/mm3 (0.0-0.9); Neut # (Auto) 3.6 th/mm3 (1.8-7.7); Neut % (Auto) 65.2 % (16.0-70.0); Platelet Count 234 th/mm3 (150-450); Red Blood Count 5.02 mil/mm3 (4.50-5.90); Red Cell Distribution Width 16.1 % (11.6-17.2); White Blood Count 5.5 th/mm3 (4.0-11.0)
[2017-11-23 05:50] LABS: Albumin 3.2 g/dL (3.4-5.0); Calcium 9.1 mg/dL (8.5-10.1); Carbon Dioxide 28.9 meq/L (21.0-32.0); Phosphorus 3.9 mg/dL (2.5-4.9); Potassium 3.9 meq/L (3.5-5.1)
--- NOTE | 2017-11-23 09:27 | P.PNIM ---
Subjective Interval history: Patient says he is feeling well. Denies any chest pain shortness of breath Physical Exam Vital signs: Vital Signs 11/22/17 10:00 11/22/17 11:00 11/22/17 11:49 Temperature 98.3 F Pulse Rate 55 L 59 L Respiratory Rate 16 Blood Pressure 117/55 L Pulse Oximetry 97 97 11/22/17 12:00 11/22/17 12:55 11/22/17 14:00 Temperature Pulse Rate 68 71 59 L Respiratory Rate Blood Pressure Pulse Oximetry 11/22/17 14:25 11/22/17 15:00 11/22/17 16:00 Temperature 98.3 F Pulse Rate 61 78 82 Respiratory Rate 17 Blood Pressure 107/58 L Pulse Oximetry 96 11/22/17 17:00 11/22/17 17:37 11/22/17 19:00 Temperature 97.6 F Pulse Rate 68 66 70 Respiratory Rate 24 Blood Pressure 117/59 L Pulse Oximetry 94 L 11/22/17 20:00 11/22/17 21:00 11/22/17 22:00 Temperature Pulse Rate 68 76 62 Respiratory Rate Blood Pressure Pulse Oximetry 11/22/17 23:00 11/23/17 00:00 11/23/17 01:00 Temperature 98.2 F Pulse Rate 60 58 L 60 Respiratory Rate 20 Blood Pressure 118/63 Pulse Oximetry 95 11/23/17 02:00 11/23/17 03:00 11/23/17 04:00 Temperature 97.6 F Pulse Rate 56 L 55 L 63 Respiratory Rate 20 Blood Pressure 127/60 Pulse Oximetry 94 L 11/23/17 05:00 11/23/17 06:00 Temperature Pulse Rate 64 81 Respiratory Rate Blood Pressure Pulse Oximetry Intake & Output 11/22/17 11/23/17 11/23/17 18:59 06:59 18:59 Intake Total 600 / 600 720 / 720 Output Total 1300 / 1300 1775 / 1775 Balance -700 / -700 -1055 / -1055 Weight 62.5 kg Intake: Oral 600 / 600 720 / 720 Output: Urine 1300 / 1300 1774 / 177 Narrative: GENERAL: Sitting up in bed. Appears comfortable. Alert and oriented 3. Exam unchanged SKIN: Warm and dry. HEAD: Normocephalic. EYES: No scleral icterus. No injection or drainage. NECK: Supple, trachea midline. No JVD. CARDIOVASCULAR: Regular rate and rhythm without murmurs, gallops, or rubs. RESPIRATORY: Breath sounds equal bilaterally. No accessory muscle use. GASTROINTESTINAL: Abdomen soft, non-tender, nondistended. MUSCULOSKELETAL: No cyanosis, or edema. BACK: Nontender without obvious deformity. No CVA tenderness. Results - Labs CBC & Chem 7: 11/23/17 04:42 11/23/17 04:42 Laboratory Results - last 24 hr 11/23/17 11/23/17 04:42 04:42 WBC 5.5 RBC 5.02 Hgb 15.3 Hct 45.9 MCV 91.5 MCH 30.4 MCHC 33.3 RDW 16.1 Plt Count 234 MPV 10.1 Neut % (Auto) 65.2 Lymph % (Auto) 20.0 [place] % (Auto) 11.0 H Eos % (Auto) 3.0 Baso % (Auto) 0.8 Neut # (Auto) 3.6 Lymph # (Auto) 1.1 [place] # (Auto) 0.6 Eos # (Auto) 0.2 Baso # (Auto) 0.0 WBC Differential . Differential Comment Auto diff final Sodium 141 Potassium 3.9 Chloride 103 Carbon Dioxide 28.9 Anion Gap 9 BUN 20 H Creatinine 1.12 Estimated GFR 65 L Random Glucose 94 Calcium 9.1 Phosphorus 3.9 Magnesium 2.0 Albumin 3.2 L Assessment and Plan - Assessment (1) Acute on chronic systolic CHF (congestive heart failure) Code(s): I50.23 - Acute on chronic systolic (congestive) heart failure Status : Acute (2) Hypertension Code(s): I10 - Essential (primary) hypertension Status: Acute (3) CAD (coronary artery disease) Code(s): I25.10 - Atherosclerotic heart disease of [place] coronary artery without angina pectoris Status: Acute (4) CHF (congestive heart failure) Code(s): I50.9 - Heart failure, unspecified Status: Acute - Plan 72-year-old male with: //Acute on chronic systolic CHF/History of CABGX3: Patient states his primary care physician took him off Lasix, metoprolol about a week ago. -Continue Lasix IV 40 mg twice daily. Good response -Supplemental oxygen as needed -Restarted metoprolol 25 mg twice daily. Lisinopril 5 mg daily. Continue statin -Patient has a LifeVest. Advised him to be compliant. -Awaiting Ambulatory Care Coordinator input, Dr. Jarrell. = 11/22. Discussed with Dr. hernandez. Awaiting results of echocardiogram. Cardiology will see and clear for discharge likely tomorrow. = 11/23. Restart heart failure medications. Cleared by cardiology for discharge. EF under 20%. Home with LifeVest. //Accelerated hypertension: -Patient restarted on metoprolol and Lasix. Continue lisinopril. -Vasotec as needed. -Monitor trend and adjust antihypertensives as needed. - BP currently adequate //GI prophylaxis: Stool softener PRN constipation. DVT PPx: Heparin Discharge Planning: Cleared by cardiology. Home with heart failure meds, life as. Follow-up with cardiology, primary care as outpatient.
--- NOTE | 2017-11-23 09:46 | P.DS ---
Date of admission: 11/20/17 14:09 Primary care physician: Wilfredo Tsang MD Brief History from admission: 71-year-old male with a medical history significant for coronary artery disease status post CABG 3 months ago, CHF, hypertension, hyperlipidemia. The patient was discharged 3 months ago after CABG with a LifeVest. Patient was discharged on amiodarone, lisinopril, metoprolol, and Lasix. He reports that he has been feeling well and was taken off metoprolol and Lasix about a week ago. Over the past 2 days, he has been getting progressively short of breath which prompted the emergency room visit. Regarding his LifeVest, he reports that he wears it at night and whenever he goes out. He has not had a follow-up with cardiology since discharge from the hospital. Currently he denies chest pressure. Workup in the emergency room consisted with acute systolic CHF. He has been given Lasix in the emergency room. DS: Diagnosis - Discharge Diagnosis (1) Acute on chronic systolic CHF (congestive heart failure) Status: Acute (2) Hypertension Status: Acute (3) CAD (coronary artery disease) Status: Acute (4) CHF (congestive heart failure) Status: Acute DS: Medications - Discharge Medications Prescriptions: atorvastatin 10 mg PO DAILY 30 Days #30 tab furosemide 20 mg PO DAILY 30 Days #30 tab metoprolol tartrate 25 mg PO BID 30 Days #60 tab sacubitril-valsartan [Entresto] 1 tab PO BID 30 Days #60 tab DS: Summary Hospital Course: Patient presented with florid heart failure. Chest x-ray with bilateral effusions, pulmonary edema. BNP 4363 on admission. Patient was diuresed with improvement in shortness of breath. Cardiology was consulted. Echocardiogram shows ejection fraction less than 20%. Patient will be on LifeVest. Heart failure medications were restarted with addition of Entresto. Patient will be discharged home to follow-up with primary care, cardiology. Patient is not to discontinue his heart failure medications. For problem based summary from most recent progress note, please see below. 72-year-old male with: //Acute on chronic systolic CHF/History of CABGX3: Patient states his primary care physician took him off Lasix, metoprolol about a week ago. -Continue Lasix IV 40 mg twice daily. Good response -Supplemental oxygen as needed -Restarted metoprolol 25 mg twice daily. Lisinopril 5 mg daily. Continue statin -Patient has a LifeVest. Advised him to be compliant. -Awaiting Flour Tester input, Dr. Jarrell. = 11/22. Discussed with Dr. duncan. Awaiting results of echocardiogram. Cardiology will see and clear for discharge likely tomorrow. = 11/23. Restart heart failure medications. Cleared by cardiology for discharge. EF under 20%. Home with LifeVest. //Accelerated hypertension: -Patient restarted on metoprolol and Lasix. Continue lisinopril. -Vasotec as needed. -Monitor trend and adjust antihypertensives as needed. - BP currently adequate //GI prophylaxis: Stool softener PRN constipation. DVT PPx: Heparin Discharge Planning: Cleared by cardiology. Home with heart failure meds, life as. Follow-up with cardiology, primary care as outpatient. - Time Spent with Patient Total time spent providing and/or coordinating discharge services: Greater than 30 minutes Exam Vital signs: Vital Signs 11/22/17 10:00 11/22/17 11:00 11/22/17 11:49 Temperature 98.3 F Pulse Rate 55 L 59 L Respiratory Rate 16 Blood Pressure 117/55 L Pulse Oximetry 97 97 11/22/17 12:00 11/22/17 12:55 11/22/17 14:00 Temperature Pulse Rate 68 71 59 L Respiratory Rate Blood Pressure Pulse Oximetry 11/22/17 14:25 11/22/17 15:00 11/22/17 16:00 Temperature 98.3 F Pulse Rate 61 78 82 Respiratory Rate 17 Blood Pressure 107/58 L Pulse Oximetry 96 11/22/17 17:00 11/22/17 17:37 11/22/17 19:00 Temperature 97.6 F Pulse Rate 68 66 70 Respiratory Rate 24 Blood Pressure 117/59 L Pulse Oximetry 94 L 11/22/17 20:00 11/22/17 21:00 11/22/17 22:00 Temperature Pulse Rate 68 76 62 Respiratory Rate Blood Pressure Pulse Oximetry 11/22/17 23:00 11/23/17 00:00 11/23/17 01:00 Temperature 98.2 F Pulse Rate 60 58 L 60 Respiratory Rate 20 Blood Pressure 118/63 Pulse Oximetry 95 11/23/17 02:00 11/23/17 03:00 11/23/17 04:00 Temperature 97.6 F Pulse Rate 56 L 55 L 63 Respiratory Rate 20 Blood Pressure 127/60 Pulse Oximetry 94 L 11/23/17 05:00 11/23/17 06:00 Temperature Pulse Rate 64 81 Respiratory Rate Blood Pressure Pulse Oximetry Intake & Output 11/22/17 11/23/17 11/23/17 18:59 06:59 18:59 Intake Total 600 / 600 720 / 720 Output Total 1300 / 1300 1775 / 1775 Balance -700 / -700 -1055 / -1055 Weight 62.5 kg Intake: Oral 600 / 600 720 / 720 Output: Urine 1300 / 1300 1775 / 1775 Results Procedures completed during hospitalization: No invasive procedures. Labs on day of discharge: Labs from last 24 hours 11/23/17 11/23/17 04:42 04:42 WBC 5.5 RBC 5.02 Hgb 15.3 Hct 45.9 MCV 91.5 MCH 30.4 MCHC 33.3 RDW 16.1 Plt Count 234 MPV 10.1 Neut % (Auto) 65.2 Lymph % (Auto) 20.0 [place] % (Auto) 11.0 H Eos % (Auto) 3.0 Baso % (Auto) 0.8 Neut # (Auto) 3.6 Lymph # (Auto) 1.1 [place] # (Auto) 0.6 Eos # (Auto) 0.2 Baso # (Auto) 0.0 WBC Differential . Differential Comment Auto diff final Sodium 141 Potassium 3.9 Chloride 103 Carbon Dioxide 28.9 Anion Gap 9 BUN 20 H Creatinine 1.12 Estimated GFR 65 L Random Glucose 94 Calcium 9.1 Phosphorus 3.9 Magnesium 2.0 Albumin 3.2 L - Impressions ITS Impressions Chest X-Ray 11/20/17 12:04 CONCLUSION: Bibasilar infiltrates and effusions Discharge Plan - Discharge Disposition Patient Disposition: 01 Discharge Home - Discharge Condition Condition: Stable - Discharge Order Discharge Orders: Discharge Order (Routine); Ordered 11/23/17 Ordered By: Minor Mallory - Discharge Details Anticipated Discharge Date: 11/20/17 Discharge Comment: Discharge with life vest - Physicians Team Primary Care Provider: Wilfredo Tsang Attending Provider: Minor Mallory Other Providers: Josie Duncan MD
[2017-11-23] MEDS: Potassium Chloride 10 MEQ ER Capsule PO SCH (09:57)
[2017-11-23] MEDS: Metoprolol Tartrate 25 MG Tablet PO SCH (09:58)
--- NOTE | 2017-11-23 09:58 | P.PNCA ---
Subjective Interval history: Patient denies any chest pain, pressure, palpitations, dizziness, edema or shortness of breath. Patient has LifeVest in place. Physical Exam Vital signs: Vital Signs 11/22/17 10:00 11/22/17 11:00 11/22/17 11:49 Temperature 98.3 F Pulse Rate 55 L 59 L Respiratory Rate 16 Blood Pressure 117/55 L Pulse Oximetry 97 97 11/22/17 12:00 11/22/17 12:55 11/22/17 14:00 Temperature Pulse Rate 68 71 59 L Respiratory Rate Blood Pressure Pulse Oximetry 11/22/17 14:25 11/22/17 15:00 11/22/17 16:00 Temperature 98.3 F Pulse Rate 61 78 82 Respiratory Rate 17 Blood Pressure 107/58 L Pulse Oximetry 96 11/22/17 17:00 11/22/17 17:37 11/22/17 19:00 Temperature 97.6 F Pulse Rate 68 66 70 Respiratory Rate 24 Blood Pressure 117/59 L Pulse Oximetry 94 L 11/22/17 20:00 11/22/17 21:00 11/22/17 22:00 Temperature Pulse Rate 68 76 62 Respiratory Rate Blood Pressure Pulse Oximetry 11/22/17 23:00 11/23/17 00:00 11/23/17 01:00 Temperature 98.2 F Pulse Rate 60 58 L 60 Respiratory Rate 20 Blood Pressure 118/63 Pulse Oximetry 95 11/23/17 02:00 11/23/17 03:00 11/23/17 04:00 Temperature 97.6 F Pulse Rate 56 L 55 L 63 Respiratory Rate 20 Blood Pressure 127/60 Pulse Oximetry 94 L 11/23/17 05:00 11/23/17 06:00 Temperature Pulse Rate 64 81 Respiratory Rate Blood Pressure Pulse Oximetry Intake & Output 11/22/17 11/23/17 11/23/17 18:59 06:59 18:59 Intake Total 600 / 600 720 / 720 Output Total 1300 / 1300 1775 / 1775 Balance -700 / -700 -1055 / -1055 Weight 62.5 kg Intake: Oral 600 / 600 720 / 720 Output: Urine 1300 / 1300 1775 / 1775 - Constitutional no acute distress - Routine HEENT Exam Head: Present: normocephalic Eye: Present: PERRL ENT: Present: mucous membranes moist - Routine Neck Exam Present: full ROM - Routine Respiratory Exam Present: CTA bilaterally - Routine Cardiovascular Exam Present: S1, S2. Absent: gallop, rubs - Routine Abdominal Exam Present: soft, normoactive bowel sounds - Routine Extremities Exam Present: full ROM, pulses intact, normal capillary refill. Absent: cyanosis, clubbing, edema - Routine Skin Exam Present: intact - Routine Neurological Exam Present: oriented X3 - Detailed Neurological Exam: Coma Scale Eye Opening: Spontaneous Verbal Response: Oriented Motor Response: Obey commands Coleen Coma Scale Total: 15 - Routine Psychiatric Exam Present: normal affect Assessment and Plan - Assessment (1) CHF (congestive heart failure) Code(s): I50.9 - Heart failure, unspecified Status: Acute (2) Hypertension Code(s): I10 - Essential (primary) hypertension Status: Acute (3) CAD (coronary artery disease) Code(s): I25.10 - Atherosclerotic heart disease of [place] coronary artery without angina pectoris Status: Acute (4) Acute on chronic systolic CHF (congestive heart failure) Code(s): I50.23 - Acute on chronic systolic (congestive) heart failure Status : Acute - Plan Continue Life Vest. Continue and titrate tx for CHF. 2D echo shows EF of 20% and global hypokinesis. Patient is cleared for discharge from cardiac standpoint and will follow up with patient in office. The patient was seen and evaluated by Dr. Duncan who participated in care, management and decision-making. - Attending Attestation Patient seen and examined. I reviewed and agree with the evaluation and plan as presented. Continue tx for CHF. Recheck echo in 3 months on GDMT. DC home as planned.
== END 2017-11-23 12:38 | disposition home or self-care (01) ==
LOC: NEPE 11:38 → NEDA 14:09 → HCPC 20:10
PROVIDERS: ADMIT Internal Medicine; ATTEND Internal Medicine

== ENCOUNTER 2018-01-14 14:38 | Inpatient (IN) ==
--- NOTE | 2018-01-14 15:27 | ED ---
HPI General Chief Complaint: Respiratory Symptoms Stated Complaint: respiratory Time Seen by Provider: 01/14/18 15:08 Source: patient Mode of arrival: ambulatory Limitations: no limitations History of Present Illness Patient is a 72-year-old male, past medical history significant for CAD with recent three-vessel CABG, CHF with left ventricular ejection fraction of less than 20%, who presents with complaint of bilateral mild ankle swelling with dyspnea when he lies flat. This improves if he sits upright. He has not been able to sleep well over the last 4 nights secondary to this orthopnea. No chest pain. No leg pain. He has had a dry, nonproductive cough but no fever nor chills. Complaint: Reports shortness of breath Onset (ago): day(s) Severity: moderate Relieving factors: upright position Exacerbating factors: lying flat Known history of: Reports congestive heart failure Treatment prior to arrival: Reports none Related Data Home Medications Medication Instructions Recorded Confirmed atorvastatin 10 mg PO HS 01/14/18 01/14/18 furosemide [Lasix] 20 mg PO DAILY 01/14/18 01/14/18 lisinopril 20 mg PO DAILY 01/14/18 01/14/18 metoprolol tartrate 25 mg PO BID 01/14/18 01/14/18 oxybutynin chloride 2.5 mg PO BID 01/14/18 01/14/18 Allergies Allergy/AdvReac Type Severity Reaction Status Date / Time No Known Allergies Allergy Verified 01/14/18 14:55 Review of Systems ROS: all other systems reviewed are negative [facility] Medical History Medical History COPD (chronic obstructive pulmonary disease) (Acute) Congestive heart failure (Acute) Depression (Acute) HTN (hypertension) (Acute) Hypercholesteremia (Acute) PAD (peripheral artery disease) (Acute) Prediabetes (Acute) Surgical History Surgical History H/O Achilles tendon repair (Acute) History of coronary artery bypass graft x 3 (Acute) Hx of tonsillectomy (Acute) Status post insertion of iliac artery stent (Acute) Family History Family History Other Family history non-contributory Social History Social History Substance History: Past History Second Hand Smoke Exposure: No Smoking Status: Current every day smoker Tobacco Type: Cigarettes How Often Do You Have a Drink Containing Alcohol: Monthly or less Recent Travel in [facility] within the Last 8 Weeks: No Recent Out of Country Travel within the Last 8 Weeks: No Exam Narrative Exam Narrative: GENERAL: Well-appearing male in no acute distress SKIN: Focused skin assessment warm/dry. No rashes nor erythema. HEAD: Atraumatic. Normocephalic. EYES: Pupils equal and round. No scleral icterus. No injection or drainage. ENT: No nasal bleeding or discharge. Mucous membranes pink and moist. NECK: Trachea midline. No JVD. CARDIOVASCULAR: Regular rate and rhythm. No murmur appreciated. Intact and equal peripheral pulses. Normal cap refill. RESPIRATORY: No accessory muscle use. Decreased breath sounds in the bases bilaterally. GASTROINTESTINAL: Abdomen soft, non-tender, nondistended. Hepatic and splenic margins not palpable. MUSCULOSKELETAL: No obvious deformities. No clubbing. No cyanosis. Slight edema to the bilateral ankles but no swelling/tenderness/warmth/erythema to the calf nor more proximally. NEUROLOGICAL: Awake and alert. No obvious cranial nerve deficits. Motor grossly within normal limits. Normal speech. PSYCHIATRIC: Appropriate mood and affect; insight and judgment normal. Course Initial Documented Vital Signs Temperature 97.9 F 01/14/18 14:52 Pulse Rate 79 01/14/18 14:52 Respiratory Rate 20 01/14/18 14:52 Blood Pressure 128/79 01/14/18 14:52 Pulse Oximetry 94 L 01/14/18 14:52 Last Documented Vital Signs Temperature 97.9 F 01/14/18 14:52 Pulse Rate 88 01/14/18 15:46 Respiratory Rate 30 H 01/14/18 15:46 Blood Pressure 108/73 01/14/18 15:46 Pulse Oximetry 94 L 01/14/18 15:47 Medical Decision Making MDM Narrative Medical decision making narrative: Patient is a 72-year-old male, past medical history significant for recent three-vessel CABG and CHF with an ejection fraction of less than 20%, who presents with complaint of orthopnea and bilateral pedal edema which has kept him from being able to sleep at night. He has been taking his Lasix (20 mg po daily) as he has been previously prescribed. He also describes a cough. EKG is unchanged from previous. Labs reveal markedly elevated BNP consistent with fluid overload for which she has been given 40 mg Lasix IV. Chest x-ray shows cardiomegaly with bilateral effusions and per the radiology read, possible developing pneumonia. As the patient was admitted within the last 3 months this puts him at risk for healthcare associated pneumonia. Blood cultures have been drawn and he has been given vancomycin, ceftriaxone and azithromycin. He has been admitted to Dr Alcantar, hospitalist environmental emergencies planner, for further evaluation and management. Medical Screen Exam Complete: Yes Emergency Medical Condition: Yes Differential Diagnosis Differential Diagnosis: Differential diagnosis includes but is not limited to CHF exacerbation, acute coronary syndrome, pneumonia, pneumothorax. Medical Records Medical records reviewed: Yes I reviewed the patient's medical records. Lab Data Lab results reviewed: Yes I reviewed the patient's lab results. Result diagrams: 01/14/18 15:45 01/14/18 15:45 Lab Results 01/14/18 01/14/18 01/14/18 Range/Units 15:45 15:45 15:45 WBC 7.3 (4.0-11.0) th/mm3 RBC 4.77 (4.50-5.90) mil/mm3 Hgb 14.5 (13.0-17.0) gm/dL Hct 44.0 (39.0-51.0) % MCV 92.4 (80.0-100.0) fL MCH 30.5 (27.0-34.0) pg MCHC 33.0 (32.0-36.0) % RDW 15.1 (11.6-17.2) % Plt Count 300 (150-450) th/mm3 MPV 9.3 (7.0-11.0) fL Neut % (Auto) 78.3 H (16.0-70.0) % Lymph % (Auto) 11.8 (9.0-44.0) % [place] % (Auto) 8.3 H (0.0-8.0) % Eos % (Auto) 1.0 (0.0-4.0) % Baso % (Auto) 0.6 (0.0-2.0) % Neut # (Auto) 5.7 (1.8-7.7) th/mm3 Lymph # (Auto) 0.9 L (1.0-4.8) th/mm3 [place] # (Auto) 0.6 (0.0-0.9) th/mm3 Eos # (Auto) 0.1 (0.0-0.4) th/mm3 Baso # (Auto) 0.0 (0.0-0.2) th/mm3 WBC Differential . Differential Comment Auto diff final Sodium 144 (136-145) meq/L Potassium 3.8 (3.5-5.1) meq/L Chloride 110 H (98-107) meq/L Carbon Dioxide 26.0 (21.0-32.0) meq/L Anion Gap 8 (5-15) meq/L BUN 18 (7-18) mg/dL Creatinine 1.29 (0.60-1.30) mg/dL Estimated GFR 55 L (>89) mL/min Random Glucose 72 L (74-106) mg/dL Calcium 9.1 (8.5-10.1) mg/dL Total Bilirubin 0.6 (0.2-1.0) mg/dL AST 20 (15-37) U/L ALT 25 (12-78) U/L Alkaline Phosphatase 87 (45-117) U/L Troponin I 0.08 H (0.02-0.05) ng/mL B-Natriuretic Peptide 4729 H (0-100) pg/mL Total Protein 6.9 (6.4-8.2) g/dL Albumin 3.1 L (3.4-5.0) g/dL Imaging Data Attestation: I personally reviewed and interpreted this imaging study as follows : My impression: Cardiomegaly with effusions Radiologist's impression: Chest X-Ray 01/14/18 15:13 CONCLUSION: 1. Trace bilateral pleural effusions with mild left lower lobe airspace consolidation. 2. Cardiomegaly with positive fluid balance. ECG Data EKG Prior to Arrival: No Attestation: I personally reviewed and interpreted this ECG as follows: (Sinus rhythm at a rate of 91 bpm there are marked ST changes throughout most of the EKG but this is unchanged from previous.) Prior ECG tracings: available for review Discharge Plan Discharge Disposition Patient Disposition: 30 Still Patient Discharge Condition Condition: Stable Discharge Details Diagnosis: Acute on chronic systolic CHF (congestive heart failure), HCAP (healthcare- associated pneumonia), Elevated troponin Physicians Team ED Provider: Dinah Murray Primary Care Provider: Primary Care Maryanne Ferreira Rxs /Orders / Referrals /Forms Prescriptions: No Action atorvastatin 10 mg Tablet 10 mg PO HS RF: 0 lisinopril 20 mg Tablet 20 mg PO DAILY RF: 0 furosemide [Lasix] 20 mg Tablet 20 mg PO DAILY RF: 0 oxybutynin chloride 5 mg Tablet 2.5 mg PO BID RF: 0 metoprolol tartrate 25 mg Tablet 25 mg PO BID RF: 0 Discharge Interventions Interventions: Vital Signs Last Done: 01/14/18 15:46 Status ED Status: In Room
--- NOTE | 2018-01-14 15:51 | XR ---
EXAM DATE: 01/14/2018 3:13 PM EDT AGE/SEX: 72 years / Male INDICATIONS: . Cardiac disease. Short of breath. CLINICAL DATA: This is the patient's initial encounter. Patient reports that signs and symptoms have been present for 4 - 6 days and indicates a pain score of 0/10. MEDICAL/SURGICAL HISTORY: . Hypertension. Chronic obstructive pulmonary disease. Hypercholester olemia. . CABG. Triple bypass 4 months ago. COMPARISON: [facility] [place]ST 1V SINGLE AP, 11/20/2017. . FINDINGS: Blunting of the costophrenic angles bilaterally with mild airspace disease in the left lower lobe . C ardiac silhouette is enlarged with postsurgical features of prior median sternotomy. Remainder of the exam is unchanged. CONCLUSION: 1. Trace bilateral pleural effusions with mild left lower lobe airspace consolidation. 2. Cardiomegaly with positive fluid balance. Electronically signed by: Enrico Green MD 01/14/2018 3:50 PM EDT
[2018-01-14 16:08] LABS: Baso % (Auto) 0.6 % (0.0-2.0); Eos # (Auto) 0.1 th/mm3 (0.0-0.4); Hemoglobin 14.5 gm/dL (13.0-17.0); Lymph # (Auto) 0.9 th/mm3 (1.0-4.8); Lymph % (Auto) 11.8 % (9.0-44.0); Mean Corpuscular Hemoglobin 30.5 pg (27.0-34.0); Mean Corpuscular Volume 92.4 fL (80.0-100.0); Mean Platelet Volume 9.3 fL (7.0-11.0); Mono # (Auto) 0.6 th/mm3 (0.0-0.9); Mono % (Auto) 8.3 % (0.0-8.0); Neut # (Auto) 5.7 th/mm3 (1.8-7.7); Neut % (Auto) 78.3 % (16.0-70.0); Platelet Count 300 th/mm3 (150-450); Red Blood Count 4.77 mil/mm3 (4.50-5.90); Red Cell Distribution Width 15.1 % (11.6-17.2); White Blood Count 7.3 th/mm3 (4.0-11.0)
[2018-01-14 16:27] LABS: Alanine Aminotransferase 25 U/L (12-78); Albumin 3.1 g/dL (3.4-5.0); Anion Gap 8 meq/L (5-15); Aspartate Aminotransferase 20 U/L (15-37); Blood Urea Nitrogen 18 mg/dL (7-18); Calcium 9.1 mg/dL (8.5-10.1); Chloride 110 meq/L (98-107); Glomerular Filtration Rate 55 mL/min (>89); Glucose,Random 72 mg/dL (74-106); Potassium 3.8 meq/L (3.5-5.1); Sodium 144 meq/L (136-145)
[2018-01-14 16:30] LABS: Alkaline Phosphatase 87 U/L (45-117); Total Protein 6.9 g/dL (6.4-8.2); Troponin I 0.08 ng/mL (0.02-0.05)
[2018-01-14] MEDS ORDERED: Vancomycin Inj 1 GM/200 ML PIGGYBACK IV.SIG ONE (16:42)
[2018-01-14] MEDS ORDERED: Azithromycin Inj 500 MG in Sodium Chlor 0.9% Inj 250 ML IV.SIG ONE (16:42)
[2018-01-14] MEDS ORDERED: Acetaminophen 325 MG Tablet PO PRN (17:42)
[2018-01-14] MEDS ORDERED: Vancomycin Inj 1,000 MG in Sodium Chlor 0.9% Inj 250 ML IV.SIG ONE (18:00)
[2018-01-14] MEDS ORDERED: Enoxaparin Inj 30 MG/0.3 ML Syringe SQ SCH (18:00)
--- NOTE | 2018-01-14 18:29 | P.HPIM ---
History of Present Illness Primary Care Physician: No Primary Care Physician Chief Complaint: Shortness of breath History of Present Illness: The patient is a 72-year-old male with past medical history of CAD status post CABG x3 this year who is presenting to the hospital with shortness of breath. The patient states that he has been unable to sleep for the past 4 nights. He says that he cannot sleep flat on his back without feeling short of breath. He sometimes wakes up in the middle of the night gasping for air. He says he gets short of breath with walking around. He denies any chest pain. He does endorse some foot swelling. He says a month ago he was here and was admitted to observation and discharged on Lasix. He says he has not been taking his Lasix for weeks. He states he has been trying to eat less salt. He does still drink beer regularly. He says he has had urinary incontinence for the past 2 years. He says he saw his heart doctor 1 week ago. He says he is on a LifeVest but does not wear it all of the time. He denies any fevers or mucus production. Inpatient Certification: I certify that the inpatient services were ordered in accordance with Medicare regulations governing the order. This includes certification that hospital inpatient services are reasonable and necessary and in the case of services not specified as inpatient-only under 42 CFR 419.22(n), that they are appropriately provided as inpatient services in accordance to with the 2-midnight benchmark under 43 CFR 412.3(e) Estimated Total Length of Stay (Days): 2 Plans for Post Hospital Care: Home Review of Systems All other systems reviewed negative except as stated in HPI [facility], [facility] - History History Provided By: Patient - Medical History Medical History: Medical History (Last Updated 01/14/18 @ 18:25 by Sg Alcantar DO) Heart disease COPD (chronic obstructive pulmonary disease) Congestive heart failure Depression HTN (hypertension) Hypercholesteremia PAD (peripheral artery disease) Prediabetes - Surgical History Surgical History: Surgical History (Last Reviewed 01/14/18 @ 18:25 by Sg Alcantar DO) H/O Achilles tendon repair History of coronary artery bypass graft x 3 Hx of tonsillectomy Status post insertion of iliac artery stent - Family History Family History: Family History (Last Reviewed 01/14/18 @ 18:26 by Sg Alcantar DO) Other Family history non-contributory - Tobacco History Second Hand Smoke Exposure: No Tobacco Use In Past 30 Days: Yes Smoking Status: Current every day smoker Tobacco Type: Cigarettes - Alcohol History How Often Do You Have a Drink Containing Alcohol: 4 or more times a week - Substance Use History Substance History: Past History - Travel History Recent Travel in the [place] Within the Last 8 Weeks: No Recent Travel Out of the Country Within the Last 8 Weeks: No - Immunization History Tetanus Immunization: <5 Years Medications and Allergies Active Medications: Active Medications Acetaminophen (Tylenol) 650 mg PO Q4H PRN PRN Reason: Temp > 100.4; pain 1-2 Atorvastatin Calcium (Lipitor) 10 mg PO HS KENROY Enoxaparin Sodium (Lovenox Inj) 30 mg SQ Q24H K[facility]Y Furosemide (Lasix Inj) 40 mg IV.PUSH BID@0900,1800 KENROY Vancomycin HCl 1,000 mg/ (Sodium Chloride) 250 mls @ 250 mls/hr IV.SIG ONCE ONE Stop: 01/14/18 18:59 Lisinopril (Prinivil) 20 mg PO DAILY KENROY Metoprolol Tartrate (Lopressor) 25 mg PO BID KENROY Miscellaneous (Pill Splitter) 1 each OTHER UNSCH PRN PRN Reason: SEE LABEL COMMENTS Oxybutynin Chloride (Ditropan) 2.5 mg PO BID KENROY Allergies Allergy/AdvReac Type Severity Reaction Status Date / Time No Known Allergies Allergy Verified 01/14/18 14:55 Home Medications Medication Instructions Recorded Confirmed Type atorvastatin 10 mg PO HS 01/14/18 01/14/18 History furosemide [Lasix] 20 mg PO DAILY 01/14/18 01/14/18 History lisinopril 20 mg PO DAILY 01/14/18 01/14/18 History metoprolol tartrate 25 mg PO BID 01/14/18 01/14/18 History oxybutynin chloride 2.5 mg PO BID 01/14/18 01/14/18 History Exam Vital signs: Vital Signs 01/14/18 14:52 01/14/18 15:46 01/14/18 15:47 Temperature 97.9 F Pulse Rate 79 88 Respiratory Rate 20 30 H Blood Pressure 128/79 108/73 Pulse Oximetry 94 L 93 L 94 L Intake & Output 01/13/18 01/14/18 01/14/18 18:59 06:59 18:59 Weight 65.771 kg Narrative: GENERAL: Well-appearing male in no acute distress. SKIN: Focused skin assessment warm/dry. No rashes nor erythema. HEAD: Atraumatic. Normocephalic. EYES: Pupils equal and round. No scleral icterus. No injection or drainage. ENT: No nasal bleeding or discharge. Mucous membranes pink and moist. NECK: Trachea midline. No JVD. CARDIOVASCULAR: Regular rate and rhythm. No murmur appreciated. RESPIRATORY: No accessory muscle use. Mild crackles at the bases. GASTROINTESTINAL: Abdomen soft, non-tender, nondistended. Hepatic and splenic margins not palpable. MUSCULOSKELETAL: No obvious deformities. No clubbing. No cyanosis. TR edema. NEUROLOGICAL: Awake and alert. No obvious cranial nerve deficits. Motor grossly within normal limits. Normal speech. PSYCHIATRIC: Appropriate mood and affect; insight and judgment normal. Results - Labs CBC & Chem 7: 01/14/18 15:45 01/14/18 15:45 Labs: Short CBC 01/14/18 Range/Units 15:45 WBC 7.3 (4.0-11.0) th/mm3 Hgb 14.5 (13.0-17.0) gm/dL Hct 44.0 (39.0-51.0) % Plt Count 300 (150-450) th/mm3 BMP 01/14/18 15:45 Sodium 144 Potassium 3.8 Chloride 110 H Carbon Dioxide 26.0 BUN 18 Creatinine 1.29 Calcium 9.1 Cardiac Enzymes 01/14/18 Range/Units 15:45 Troponin I 0.08 H (0.02-0.05) ng/mL Liver Function 01/14/18 Range/Units 15:45 Total Bilirubin 0.6 (0.2-1.0) mg/dL AST 20 (15-37) U/L ALT 25 (12-78) U/L Alkaline Phosphatase 87 (45-117) U/L Albumin 3.1 L (3.4-5.0) g/dL - Imaging Impressions Chest X-Ray 01/14/18 15:13 CONCLUSION: 1. Trace bilateral pleural effusions with mild left lower lobe airspace consolidation. 2. Cardiomegaly with positive fluid balance. Caprini VTE Risk Assessment Caprini VTE Risk Assessment: Moderate/High Risk (score >= 2) Caprini Risk Assessment Model: Point Value = 1 Point Value = 2 Point Value = 3 Point Value = 5 Age 41-60 Minor surgery BMI > 25 kg/m2 Swollen legs Varicose veins or History of unexplained or recurrent spontaneous Oral contraceptives or hormone replacement Sepsis (< 1 month) Serious lung disease, including pneumonia (< 1 month) Abnormal pulmonary function Acute myocardial infarction Congestive heart failure (< 1 month) History of inflammatory bowel disease Medical patient at bed rest Age 61-74 Arthroscopic surgery Major open surgery (> 45 min) Laparoscopic surgery (> 45 min) Malignancy Confined to bed (> 72 hours) Immobilizing plaster cast Central venous access Age >= 75 History of VTE Family history of VTE Factor V Leiden Prothrombin [id number] Lupus anticoagulant Anticardiolipin antibodies Elevated serum homocysteine Heparin-induced thrombocytopenia Other congenital or acquired thrombophilia Stroke (< 1 month) Elective arthroplasty Hip, pelvis, or leg fracture Acute spinal cord injury (< 1 month) Prophylaxis Regimen: Total Risk Factor Score Risk Level Prophylaxis Regimen 0-1 Low Early ambulation 2 Moderate Order ONE of the following: *Sequential Compression Device (SCD) *Heparin 5000 units SQ BID 3-4 Higher Order ONE of the following medications: *Heparin 5000 units SQ TID *Enoxaparin/Lovenox 40 mg SQ daily (WT < 150 kg, CrCl > 30 mL/min) *Enoxaparin/Lovenox 30 mg SQ daily (WT < 150 kg, CrCl > 10-29 mL/min) *Enoxaparin/Lovenox 30 mg SQ BID (WT < 150 kg, CrCl > 30 mL/min) AND/OR *Sequential Compression Device (SCD) 5 or more Highest Order ONE of the following medications: *Heparin 5000 units SQ TID (Preferred with Epidurals) *Enoxaparin/Lovenox 40 mg SQ daily (WT < 150 kg, CrCl > 30 mL/min) *Enoxaparin/Lovenox 30 mg SQ daily (WT < 150 kg, CrCl > 10-29 mL/min) *Enoxaparin/Lovenox 30 mg SQ BID (WT < 150 kg, CrCl > 30 mL/min) AND *Sequential Compression Device (SCD) Assessment and Plan - Plan Acute on chronic systolic heart failure S/p CABG x 3. Has not been taking Lasix in the past few weeks. Presents with shortness of breath, leg swelling, and pulmonary congestion on CXR. EKG without acute ischemia. Trop elevated at 0.08. BNP almost 5000. -continue IV Lasix 40 mg BID. -trend trops. -telemetry. -continue cardiac regimen. -cardiology consult requested (Dr. Duncan). -continue LifeVest. -oxygen as needed. Incentive spirometry. Urinary incontinence Has been ongoing for over two years. He has not had a urological work-up. -Continue oxybutynin. -Refer to urology upon discharge. Nicotine dependance Still smoking around a pack a day. -cessation instruction. PPx: Lovenox
[2018-01-14] MEDS: Metoprolol Tartrate 25 MG Tablet PO SCH (22:33)
[2018-01-15 06:00] LABS: Baso # (Auto) 0.1 th/mm3 (0.0-0.2); Eos # (Auto) 0.1 th/mm3 (0.0-0.4); Eos % (Auto) 1.7 % (0.0-4.0); Hematocrit 42.9 % (39.0-51.0); Hemoglobin 14.5 gm/dL (13.0-17.0); Lymph # (Auto) 1.2 th/mm3 (1.0-4.8); Lymph % (Auto) 16.7 % (9.0-44.0); Mean Corpuscular HGB Conc 33.8 % (32.0-36.0); Mean Corpuscular Hemoglobin 30.8 pg (27.0-34.0); Mean Corpuscular Volume 91.1 fL (80.0-100.0); Mean Platelet Volume 10.5 fL (7.0-11.0); Mono # (Auto) 0.6 th/mm3 (0.0-0.9); Mono % (Auto) 8.1 % (0.0-8.0); Neut # (Auto) 5.4 th/mm3 (1.8-7.7); Neut % (Auto) 72.5 % (16.0-70.0); Platelet Count 287 th/mm3 (150-450); Red Blood Count 4.71 mil/mm3 (4.50-5.90); Red Cell Distribution Width 15.6 % (11.6-17.2); White Blood Count 7.5 th/mm3 (4.0-11.0)
[2018-01-15 06:25] LABS: Alanine Aminotransferase 46 U/L (12-78); Albumin 3.1 g/dL (3.4-5.0); Alkaline Phosphatase 102 U/L (45-117); Anion Gap 11 meq/L (5-15); Aspartate Aminotransferase 53 U/L (15-37); Blood Urea Nitrogen 23 mg/dL (7-18); Calcium 8.8 mg/dL (8.5-10.1); Carbon Dioxide 21.4 meq/L (21.0-32.0); Chloride 109 meq/L (98-107); Glomerular Filtration Rate 61 mL/min (>89); Glucose,Random 89 mg/dL (74-106); Potassium 4.4 meq/L (3.5-5.1); Sodium 141 meq/L (136-145)
[2018-01-15] MEDS: Metoprolol Tartrate 25 MG Tablet PO SCH ×2 (09:33→22:56)
[2018-01-15] MEDS: Lisinopril 20 MG Tablet PO SCH (09:33)
--- NOTE | 2018-01-15 10:22 | P.PN ---
Subjective Interval history: Patient seen and examined for follow-up of CHF exacerbation. Atrial fibrillation found on EKG overnight. He denies any history of atrial fibrillation in the past. He is agreeable to starting anticoagulation. A long discussion was had regarding new anticoagulants versus Coumadin and he would like to be on a novel anticoagulant. He states in the past he was told that he had had a stroke at some point based on imaging of his brain. The patient reports he is feeling a little bit better now that he is on oxygen. He states he was able to get some rest last night. He states he is only able to sleep propped up and with pillows underneath his head. He reports he is urinating but states it is not that much more than what he usually does. He continues to be dyspneic though with minimal exertion and even sitting up in bed causes him to become shortness of breath. He denies any chest pain or palpitations. He reports he is planning on moving to [facility] very soon to live with his son. He is currently not wearing his LifeVest because apparently it is in the car. He states he is worried about having to go through recurrent CHF exacerbations and wonders if anything can be done. We discussed lifestyle habits and compliance to medications, and he admits that he has not been compliant with his Lasix. Physical Exam Vital signs: Vital Signs 01/14/18 14:52 01/14/18 15:46 01/14/18 15:47 Temperature 97.9 F Pulse Rate 79 88 Respiratory Rate 20 30 H Blood Pressure 128/79 108/73 Pulse Oximetry 94 L 93 L 94 L 01/14/18 16:05 01/14/18 18:00 01/14/18 20:00 Temperature Pulse Rate 103 H 99 H Respiratory Rate 28 H 28 H Blood Pressure 120/71 126/85 Pulse Oximetry 94 L 94 L 01/15/18 00:00 01/15/18 00:45 01/15/18 04:00 Temperature 97.4 F L 97.8 F Pulse Rate 84 88 87 Respiratory Rate 19 19 Blood Pressure 146/85 H 151/89 H Pulse Oximetry 98 95 01/15/18 07:49 01/15/18 08:12 Temperature 97.9 F Pulse Rate 88 Respiratory Rate 16 Blood Pressure 171/97 H Pulse Oximetry 94 L 96 Intake & Output 01/14/18 01/15/18 01/15/18 18:59 06:59 18:59 Intake Total 720 / 720 Output Total 925 / 925 Balance -205 / -205 Weight 65.771 kg 67.585 kg Intake: IV 600 / 600 Azithromycin Inj 500 MG In NS 250 / 250 Inj 250 ML @ 250 mls/hr IV.SIG ONCE ONE Rx#:[id number] Vancomycin Inj 1,000 MG In NS 250 / 250 Inj 250 ML @ 250 mls/hr IV.SIG ONCE ONE Rx#:[id number] Rocephin Inj 1,000 MG In NS Inj 100 / 100 100 ML @ 200 mls/hr IV.SIG ONCE ONE Rx#:[id number] Oral 120 / 120 Output: Urine 925 / 925 Other: # Voids 3 Date of Last Bowel Movement 01/14/18 Weight On Admission 65.771 kg Narrative: GENERAL: WN, WD elderly male sitting up in bed in NAD. SKIN: Warm and dry. HEENT: AT/NC. Pupils equal and round. MMM. Nasal cannula in place. NECK: Mild JVD. HEART: RRR no m/r/g. LUNGS: Bibasilar crackles with no wheezing. ABDOMEN: +BS, soft, NT, ND. EXTREMITIES: No significant LE edema. NEURO: Awake and alert. Results - Labs CBC & Chem 7: 01/15/18 04:00 01/15/18 04:00 Laboratory Results - last 24 hr 01/14/18 01/14/18 01/14/18 15:45 15:45 15:45 WBC 7.3 RBC 4.77 Hgb 14.5 Hct 44.0 MCV 92.4 MCH 30.5 MCHC 33.0 RDW 15.1 Plt Count 300 MPV 9.3 Neut % (Auto) 78.3 H Lymph % (Auto) 11.8 Moffat % (Auto) 8.3 H Eos % (Auto) 1.0 Baso % (Auto) 0.6 Neut # (Auto) 5.7 Lymph # (Auto) 0.9 L Moffat # (Auto) 0.6 Eos # (Auto) 0.1 Baso # (Auto) 0.0 WBC Differential . Differential Comment Auto diff final Sodium 144 Potassium 3.8 Chloride 110 H Carbon Dioxide 26.0 Anion Gap 8 BUN 18 Creatinine 1.29 Estimated GFR 55 L Random Glucose 72 L Calcium 9.1 Total Bilirubin 0.6 AST 20 ALT 25 Alkaline Phosphatase 87 Troponin I 0.08 H B-Natriuretic Peptide 4729 H Total Protein 6.9 Albumin 3.1 L 01/14/18 01/15/18 01/15/18 19:50 02:34 04:00 WBC 7.5 RBC 4.71 Hgb 14.5 Hct 42.9 MCV 91.1 MCH 30.8 MCHC 33.8 RDW 15.6 Plt Count 287 MPV 10.5 Neut % (Auto) 72.5 H Lymph % (Auto) 16.7 Moffat % (Auto) 8.1 H Eos % (Auto) 1.7 Baso % (Auto) 1.0 Neut # (Auto) 5.4 Lymph # (Auto) 1.2 Moffat # (Auto) 0.6 Eos # (Auto) 0.1 Baso # (Auto) 0.1 WBC Differential . Differential Comment Auto diff final Sodium Potassium Chloride Carbon Dioxide Anion Gap BUN Creatinine Estimated GFR Random Glucose Calcium Total Bilirubin AST ALT Alkaline Phosphatase Troponin I 0.10 H 0.10 H B-Natriuretic Peptide Total Protein Albumin 01/15/18 04:00 WBC RBC Hgb Hct MCV MCH MCHC RDW Plt Count MPV Neut % (Auto) Lymph % (Auto) Moffat % (Auto) Eos % (Auto) Baso % (Auto) Neut # (Auto) Lymph # (Auto) Moffat # (Auto) Eos # (Auto) Baso # (Auto) WBC Differential Differential Comment Sodium 141 Potassium 4.4 Chloride 109 H Carbon Dioxide 21.4 Anion Gap 11 BUN 23 H Creatinine 1.18 Estimated GFR 61 L Random Glucose 89 Calcium 8.8 Total Bilirubin 0.5 AST 53 H ALT 46 Alkaline Phosphatase 102 Troponin I B-Natriuretic Peptide Total Protein 7.0 Albumin 3.1 L - Imaging Impressions Chest X-Ray 01/14/18 15:13 CONCLUSION: 1. Trace bilateral pleural effusions with mild left lower lobe airspace consolidation. 2. Cardiomegaly with positive fluid balance. Assessment and Plan - Assessment (1) Acute on chronic systolic CHF (congestive heart failure) Code(s): I50.23 - Acute on chronic systolic (congestive) heart failure Status : Acute - Plan 72-year-old male with history of CAD s/p CABG this year and CHF with EF 20% admitted on 01/14 with acute on chronic CHF exacerbation. 1. Acute on chronic systolic heart failure Secondary to noncompliance with Lasix CXR with trace bilateral pleural effusions, cardiomegaly, and pulmonary edema BNP greater than 4000 Echo on 11/22/17 with EF less than 20% and global hypokinesis Patient noncompliant with LifeVest which was stressed to him Increase Lasix to 60 mg IV BID Cardiology following Continue metoprolol and lisinopril 2. Atrial fibrillation EKG showing atrial fibrillation CHADSVASc score of 6 Currently rate controlled Thoroughly discuss options of anticoagulation and various risks/benefits Start Eliquis 5 mg twice daily 3. CAD S/p CABG x 3 in August 2017 Troponin 0 0.08, 0.10, 0.10 likely secondary to heart strain acute exacerbation No active chest pain Resume home metoprolol and lisinopril Continue statin 4. Hypertension Continue home lisinopril and metoprolol Continue monitor and titrate medications as needed 5. Chronic urinary incontinence Has been ongoing for over two years and he has not had a urological work-up Continue oxybutynin Follow-up with urology as outpatient 6. Tobacco abuse Cessation counseling provided DVT prophylaxis: starting on Eliquis as above Discussed Condition With: Patient Discharge Planning: Possibly in next 1-2 days if symptoms improve
--- NOTE | 2018-01-15 13:37 | P.CONCA ---
History of Present Illness Service: Cardiology Consult date: 01/15/18 Requesting Physician: Sg Alcantar Reason for Consult: CHF Primary Care Provider: No Primary Care Physician Chief Complaint: Shortness of breath History of Present Illness: This is a 72-year-old male known to Dr. Duncan with a history of coronary artery disease, congestive heart failure with LifeVest , cardiomyopathy , coronary artery bypass graft, hypertension, hyperlipidemia, COPD and peripheral artery disease. He states that 4 days ago he started to develop shortness of breath when laying down. He states that the shortness of breath increased to the point where he was unable to walk any distance or lay flat at any time. He also states that he noticed an increase in lower extremity edema. He currently has a LifeVest which he wears only when he is sleeping or if he goes out. He states that he does not wear it around the house. Currently he denies any chest pain, pressure, palpitations or edema. He does complain of shortness of breath with any exertion. Review of Systems All other systems reviewed negative except as stated in HPI [facility] - History History Provided By: Patient - Medical History Medical History: Medical History (Last Updated 01/14/18 @ 18:25 by Sg Alcantar DO) Heart disease COPD (chronic obstructive pulmonary disease) Congestive heart failure Depression HTN (hypertension) Hypercholesteremia PAD (peripheral artery disease) Prediabetes - Surgical History Surgical History: Surgical History (Last Reviewed 01/14/18 @ 18:25 by Sg Alcantar DO) H/O Achilles tendon repair History of coronary artery bypass graft x 3 Hx of tonsillectomy Status post insertion of iliac artery stent - Family History Family History: Family History (Last Reviewed 01/14/18 @ 18:26 by Sg Alcantar DO) Other Family history non-contributory - Tobacco History Second Hand Smoke Exposure: No Tobacco Use In Past 30 Days: Yes Smoking Status: Current every day smoker Tobacco Type: Cigarettes - Alcohol History How Often Do You Have a Drink Containing Alcohol: Monthly or less - Substance Use History Substance History: Past History - Travel History Recent Travel in the [place] Within the Last 8 Weeks: No Recent Travel Out of the Country Within the Last 8 Weeks: No - Immunization History Tetanus Immunization: <5 Years Medications and Allergies Allergies Allergy/AdvReac Type Severity Reaction Status Date / Time No Known Allergies Allergy Verified 01/14/18 14:55 Home Medications Medication Instructions Recorded Confirmed Type atorvastatin 10 mg PO HS 01/14/18 01/14/18 History furosemide [Lasix] 20 mg PO DAILY 01/14/18 01/14/18 History lisinopril 20 mg PO DAILY 01/14/18 01/14/18 History metoprolol tartrate 25 mg PO BID 01/14/18 01/14/18 History oxybutynin chloride 2.5 mg PO BID 01/14/18 01/14/18 History Active Medications: Active Medications Acetaminophen (Tylenol) 650 mg PO Q4H PRN PRN Reason: Temp > 100.4; pain 1-2 Apixaban (Eliquis) 5 mg PO BID [facility] Atorvastatin Calcium (Lipitor) 10 mg PO HS [facility] Last Admin: 01/14/18 22:33 Dose: 10 mg Furosemide (Lasix Inj) 40 mg IV.PUSH BID@0900,1800 [facility] Last Admin: 01/15/18 09:33 Dose: 40 mg Lisinopril (Prinivil) 20 mg PO DAILY [facility] Last Admin: 01/15/18 09:33 Dose: 20 mg Metoprolol Tartrate (Lopressor) 25 mg PO BID [facility] Last Admin: 01/15/18 09:33 Dose: 25 mg Miscellaneous (Pill Splitter) 1 each OTHER UNSCH PRN PRN Reason: SEE LABEL COMMENTS Oxybutynin Chloride (Ditropan) 2.5 mg PO BID [facility] Last Admin: 01/15/18 09:33 Dose: 2.5 mg Exam Vital signs: Vital Signs 01/14/18 14:52 01/14/18 15:46 01/14/18 15:47 Temperature 97.9 F Pulse Rate 79 88 Respiratory Rate 20 30 H Blood Pressure 128/79 108/73 Pulse Oximetry 94 L 93 L 94 L 01/14/18 16:05 01/14/18 18:00 01/14/18 20:00 Temperature Pulse Rate 103 H 99 H Respiratory Rate 28 H 28 H Blood Pressure 120/71 126/85 Pulse Oximetry 94 L 94 L 01/15/18 00:00 01/15/18 00:45 01/15/18 04:00 Temperature 97.4 F L 97.8 F Pulse Rate 84 88 87 Respiratory Rate 19 19 Blood Pressure 146/85 H 151/89 H Pulse Oximetry 98 95 01/15/18 07:49 01/15/18 08:12 01/15/18 11:09 Temperature 97.9 F 97.3 F L Pulse Rate 88 80 Respiratory Rate 16 16 Blood Pressure 171/97 H 151/89 H Pulse Oximetry 94 L 96 96 Intake & Output 01/14/18 01/15/18 01/15/18 18:59 06:59 18:59 Intake Total 720 / 720 Output Total 925 / 925 Balance -205 / -205 Weight 65.771 kg 67.585 kg Intake: IV 600 / 600 Azithromycin Inj 500 MG In NS 250 / 250 Inj 250 ML @ 250 mls/hr IV.SIG ONCE ONE Rx#:[id number] Vancomycin Inj 1,000 MG In NS 250 / 250 Inj 250 ML @ 250 mls/hr IV.SIG ONCE ONE Rx#:[id number] Rocephin Inj 1,000 MG In NS Inj 100 / 100 100 ML @ 200 mls/hr IV.SIG ONCE ONE Rx#:[id number] Oral 120 / 120 Output: Urine 925 / 925 Other: # Voids 3 Date of Last Bowel Movement 01/14/18 Weight On Admission 65.771 kg - Constitutional no acute distress - Routine HEENT Exam Head: Present: normocephalic Eye: Present: PERRL ENT: Present: mucous membranes moist - Routine Neck Exam Present: full ROM - Routine Respiratory Exam Present: decreased breath sounds, crackles Comments: crackles bilateral lower lobes. - Routine Cardiovascular Exam Present: S1, S2. Absent: murmur, gallop, rubs, S3, S4 - Routine Abdominal Exam Present: normoactive bowel sounds - Routine Extremities Exam Present: edema, full ROM, pulses intact, normal capillary refill. Absent: cyanosis, clubbing Comments: trace edema. - Routine Skin Exam Present: intact - Routine Neurological Exam Present: oriented X3 Results 01/15/18 04:00 01/15/18 04:00 Cardiac Enzymes 01/14/18 01/14/18 01/14/18 Range/Units 15:45 15:45 19:50 AST 20 (15-37) U/L Troponin I 0.08 H 0.10 H (0.02-0.05) ng/mL B-Natriuretic Peptide 4729 H (0-100) pg/mL 01/15/18 01/15/18 Range/Units 02:34 04:00 AST 53 H (15-37) U/L Troponin I 0.10 H (0.02-0.05) ng/mL B-Natriuretic Peptide (0-100) pg/mL Coagulation 01/14/18 Range/Units 15:45 B-Natriuretic Peptide 4729 H (0-100) pg/mL CBC 01/14/18 01/15/18 Range/Units 15:45 04:00 WBC 7.3 7.5 (4.0-11.0) th/mm3 RBC 4.77 4.71 (4.50-5.90) mil/mm3 Hgb 14.5 14.5 (13.0-17.0) gm/dL Hct 44.0 42.9 (39.0-51.0) % Plt Count 300 287 (150-450) th/mm3 Neut # (Auto) 5.7 5.4 (1.8-7.7) th/mm3 Lymph # (Auto) 0.9 L 1.2 (1.0-4.8) th/mm3 Josephine # (Auto) 0.6 0.6 (0.0-0.9) th/mm3 Eos # (Auto) 0.1 0.1 (0.0-0.4) th/mm3 Baso # (Auto) 0.0 0.1 (0.0-0.2) th/mm3 Comprehensive Metabolic Panel 01/14/18 01/15/18 Range/Units 15:45 04:00 Sodium 144 141 (136-145) meq/L Potassium 3.8 4.4 (3.5-5.1) meq/L Chloride 110 H 109 H (98-107) meq/L Carbon Dioxide 26.0 21.4 (21.0-32.0) meq/L BUN 18 23 H (7-18) mg/dL Creatinine 1.29 1.18 (0.60-1.30) mg/dL Calcium 9.1 8.8 (8.5-10.1) mg/dL AST 20 53 H (15-37) U/L ALT 25 46 (12-78) U/L Alkaline Phosphatase 87 102 (45-117) U/L Total Protein 6.9 7.0 (6.4-8.2) g/dL Albumin 3.1 L 3.1 L (3.4-5.0) g/dL Intake and Output 01/14/18 01/15/18 01/15/18 22:59 06:59 14:59 Intake Total 600 / 600 120 / 120 Output Total 475 / 475 450 / 450 Balance 125 / 125 -330 / -330 Intake: IV 600 / 600 Azithromycin Inj 500 MG In NS 250 / 250 Inj 250 ML @ 250 mls/hr IV.SIG ONCE ONE Rx#:[id number] Vancomycin Inj 1,000 MG In NS 250 / 250 Inj 250 ML @ 250 mls/hr IV.SIG ONCE ONE Rx#:[id number] Rocephin Inj 1,000 MG In NS Inj 100 / 100 100 ML @ 200 mls/hr IV.SIG ONCE ONE Rx#:[id number] Oral 120 / 120 Output: Urine 475 / 475 450 / 450 Other: # Voids 2 3 Date of Last Bowel Movement 01/14/18 Weight 65.771 kg 67.585 kg Weight On Admission 65.771 kg - Imaging and Cardiology Imaging: Impressions Chest X-Ray 01/14/18 15:13 CONCLUSION: 1. Trace bilateral pleural effusions with mild left lower lobe airspace consolidation. 2. Cardiomegaly with positive fluid balance. Assessment and Plan - Assessment (1) CHF (congestive heart failure) Code(s): I50.9 - Heart failure, unspecified Status: Acute (2) Hypertension Code(s): I10 - Essential (primary) hypertension Status: Acute (3) CAD (coronary artery disease) Code(s): I25.10 - Atherosclerotic heart disease of [place] coronary artery without angina pectoris Status: Acute (4) HCAP (healthcare-associated pneumonia) Code(s): J18.9 - Pneumonia, unspecified organism Status: Acute (5) Elevated troponin Code(s): R74.8 - Abnormal levels of other serum enzymes Status: Acute - Plan Cardiac enzymes are slightly elevated but are not trending, no signs of acute coronary syndrome at this time. Continue Lasix 40mg BID for diuresis and monitoring of electrolytes. We will continue lisinopril 20 mg and metoprolol 25 mg for hypertension. Patient currently does not have LifeVest with him, he states, "it is in the car ". Instructed patient on the importance of wearing LifeVest continuously. We will continue to monitor patient during hospitalization and follow-up in office post discharge. Patient was seen and evaluated by Dr. Duncan who participated in care, management and decision-making. - Attending Attestation Patient seen and examined. I reviewed and agree with the evaluation and plan as presented. Continue tx for CHF exacerbation. Continue LifeVest. Echo and possible ICD later. Patient is moving to [place] in the near future.
--- NOTE | 2018-01-15 15:47 | ECG ---
Date Performed: 01/14/2018 Time Performed: 16:23:54 PTAGE: 72 years EKG: Sinus rhythm WITH FREQUENT SUPRAVENTRICULAR PREMATURE COMPLEXES POSSIBLE RIGHT VENTRICULAR HYPERTROPHY ST DEVIATI ON AND MARKED T-WAVE ABNORMALITY, CONSIDER LATERAL ISCHEMIA Intraventricular Conduction Delay ABNORMA L ECG PREVIOUS TRACING : 11/20/2017 14.39 Compared to previous tracing, diffuse ST changes persists . Cannot rule out ischemia but largely compared to prior tracing DOCTOR: Kevin Jauregui Interpretating Date/Time 01/15/2018 15:46:59
--- NOTE | 2018-01-15 15:49 | ECG ---
Date Performed: 01/14/2018 Time Performed: 19:58:57 PTAGE: 72 years EKG: ATRIAL FIBRILLATION WITH RAPID VENTRICULAR RESPONSE BORDERLINE RIGHT AXIS DEVIATION ST MARYANN ATION AND MODERATE T-WAVE ABNORMALITY, CONSIDER LATERAL ISCHEMIA ST DEVIATION AND MODERATE T-WAVE ABN ORMALITY, CONSIDER INFERIOR ISCHEMIA ABNORMAL ECG PREVIOUS TRACING :01/14/2018 @16.23 Compared to previous tracing, atrial fibrillation is new. S T depression over the inferior leads is more prominent. Lateral T-waves are now upright. Clinical cor relation is recommended DOCTOR: Kevin Jauregui Interpretating Date/Time 01/15/2018 15:48:19
--- NOTE | 2018-01-15 15:50 | ECG ---
Date Performed: 01/15/2018 Time Performed: 06:14:58 PTAGE: 72 years EKG: Sinus rhythm WITH OCCASIONAL VENTRICULAR PREMATURE COMPLEXES WITH FREQUENT SUPRAVENTRICULAR PREMATURE COMPLEXES P OSSIBLE LEFT ATRIAL ENLARGEMENT BORDERLINE RIGHT AXIS DEVIATION MODERATE T-WAVE ABNORMALITY, CONSIDER LATERAL ISCHEMIA MODERATE T-WAVE ABNORMALITY, CONSIDER INFERIOR ISCHEMIA ABNORMAL ECG PREVIOUS TRACING : 01/14/2018 19.58 Artifact percludes accurate assessment Diffuse ST-T eave ch anges persists. Clinical correlation is recommended DOCTOR: Kevin Jauregui Interpretating Date/Time 01/15/2018 15:49:35
[2018-01-15] MEDS ORDERED: Influenza (Quadrivalent) Vaccine 0.5 ML Syringe IM ONE (23:45)
[2018-01-16] MEDS ORDERED: Influenza (Quadrivalent) Vaccine 0.5 ML Syringe IM ONE ×2 (00:15→09:00)
[2018-01-16 09:04] LABS: Calcium 9.1 mg/dL (8.5-10.1); Carbon Dioxide 30.4 meq/L (21.0-32.0); Potassium 3.6 meq/L (3.5-5.1)
--- NOTE | 2018-01-16 09:29 | P.PNCA ---
Subjective Interval history: Patient denies any CP, pressure, palpitations, dizziness or edema. Patient states that he is feeling much better and his breathing has improved. Medications and Allergies Allergies Allergy/AdvReac Type Severity Reaction Status Date / Time No Known Allergies Allergy Verified 01/14/18 14:55 Home Medications Medication Instructions Recorded Confirmed Type atorvastatin 10 mg PO HS 01/14/18 01/14/18 History furosemide [Lasix] 20 mg PO DAILY 01/14/18 01/14/18 History lisinopril 20 mg PO DAILY 01/14/18 01/14/18 History metoprolol tartrate 25 mg PO BID 01/14/18 01/14/18 History oxybutynin chloride 2.5 mg PO BID 01/14/18 01/14/18 History Active Medications: Active Medications Acetaminophen (Tylenol) 650 mg PO Q4H PRN PRN Reason: Temp > 100.4; pain 1-2 Apixaban (Eliquis) 5 mg PO BID [facility] Last Admin: 01/15/18 22:55 Dose: 5 mg Atorvastatin Calcium (Lipitor) 10 mg PO HS [facility] Last Admin: 01/15/18 22:56 Dose: 10 mg Furosemide (Lasix Inj) 60 mg IV.PUSH BID@0900,1800 [facility] Last Admin: 01/15/18 17:44 Dose: 60 mg Lisinopril (Prinivil) 20 mg PO DAILY [facility] Last Admin: 01/15/18 09:33 Dose: 20 mg Metoprolol Tartrate (Lopressor) 25 mg PO BID [facility] Last Admin: 01/15/18 22:56 Dose: 25 mg Miscellaneous (Pill Splitter) 1 each OTHER UNSCH PRN PRN Reason: SEE LABEL COMMENTS Oxybutynin Chloride (Ditropan) 2.5 mg PO BID [facility] Last Admin: 01/15/18 22:55 Dose: 2.5 mg Physical Exam Vital signs: Vital Signs 01/15/18 11:09 01/15/18 16:00 01/15/18 20:00 Temperature 97.3 F L 98.7 F 98.5 F Pulse Rate 80 90 66 Respiratory Rate 16 16 16 Blood Pressure 151/89 H 136/81 103/65 Pulse Oximetry 96 97 93 L 01/15/18 20:50 01/15/18 22:15 01/16/18 00:00 Temperature 97.5 F L 98.1 F Pulse Rate 83 90 72 Respiratory Rate 18 20 Blood Pressure 117/81 142/96 H Pulse Oximetry 96 93 L 01/16/18 04:00 01/16/18 08:00 Temperature 97.8 F 97.3 F L Pulse Rate 75 67 Respiratory Rate 20 18 Blood Pressure 151/88 H 156/86 H Pulse Oximetry 94 L Intake & Output 01/15/18 01/16/18 01/16/18 18:59 06:59 18:59 Intake Total 360 / 360 680 / 680 Output Total 600 / 600 1900 / 1900 Balance -240 / -240 -1220 / -1220 Weight 66.5 kg Intake: Oral 360 / 360 680 / 680 Output: Urine 600 / 600 1900 / 1900 Other: Date of Last Bowel Movement 01/15/18 # Bowel Movements 0 - Constitutional no acute distress - Routine HEENT Exam Head: Present: normocephalic Eye: Present: PERRL ENT: Present: mucous membranes moist - Routine Neck Exam Present: full ROM - Routine Respiratory Exam Present: crackles Comments: crackles bilateral lower lobes. - Routine Cardiovascular Exam Present: S1, S2. Absent: murmur, gallop, rubs Comments: SR - SB w/occ multifocal PVC's. - Routine Abdominal Exam Present: normoactive bowel sounds - Routine Extremities Exam Present: full ROM, pulses intact, normal capillary refill. Absent: cyanosis, clubbing, edema - Routine Skin Exam Present: intact - Routine Neurological Exam Present: oriented X3 - Detailed Neurological Exam: Coma Scale Eye Opening: Spontaneous Verbal Response: Oriented Motor Response: Obey commands [place] Coma Scale Total: 15 - Routine Psychiatric Exam Present: normal affect Results 01/15/18 04:00 01/16/18 07:52 Cardiac Enzymes 01/14/18 01/14/18 01/14/18 Range/Units 15:45 15:45 19:50 AST 20 (15-37) U/L Troponin I 0.08 H 0.10 H (0.02-0.05) ng/mL B-Natriuretic Peptide 4729 H (0-100) pg/mL 01/15/18 01/15/18 Range/Units 02:34 04:00 AST 53 H (15-37) U/L Troponin I 0.10 H (0.02-0.05) ng/mL B-Natriuretic Peptide (0-100) pg/mL Coagulation 01/14/18 Range/Units 15:45 B-Natriuretic Peptide 4729 H (0-100) pg/mL CBC 01/14/18 01/15/18 Range/Units 15:45 04:00 WBC 7.3 7.5 (4.0-11.0) th/mm3 RBC 4.77 4.71 (4.50-5.90) mil/mm3 Hgb 14.5 14.5 (13.0-17.0) gm/dL Hct 44.0 42.9 (39.0-51.0) % Plt Count 300 287 (150-450) th/mm3 Neut # (Auto) 5.7 5.4 (1.8-7.7) th/mm3 Lymph # (Auto) 0.9 L 1.2 (1.0-4.8) th/mm3 Coal # (Auto) 0.6 0.6 (0.0-0.9) th/mm3 Eos # (Auto) 0.1 0.1 (0.0-0.4) th/mm3 Baso # (Auto) 0.0 0.1 (0.0-0.2) th/mm3 Comprehensive Metabolic Panel 01/14/18 01/15/18 01/16/18 Range/Units 15:45 04:00 07:52 Sodium 144 141 142 (136-145) meq/L Potassium 3.8 4.4 3.6 D (3.5-5.1) meq/L Chloride 110 H 109 H 103 (98-107) meq/L Carbon Dioxide 26.0 21.4 30.4 D (21.0-32.0) meq/L BUN 18 23 H 23 H (7-18) mg/dL Creatinine 1.29 1.18 1.19 (0.60-1.30) mg/dL Calcium 9.1 8.8 9.1 (8.5-10.1) mg/dL AST 20 53 H (15-37) U/L ALT 25 46 (12-78) U/L Alkaline Phosphatase 87 102 (45-117) U/L Total Protein 6.9 7.0 (6.4-8.2) g/dL Albumin 3.1 L 3.1 L (3.4-5.0) g/dL Intake and Output 01/15/18 01/16/18 01/16/18 22:59 06:59 14:59 Intake Total 360 / 360 680 / 680 Output Total 1450 / 1450 1050 / 1050 Balance -1090 / -1090 -370 / -370 Intake: Oral 360 / 360 680 / 680 Output: Urine 1450 / 1450 1050 / 1050 Other: Date of Last Bowel Movement 01/15/18 # Bowel Movements 0 Weight 66.5 kg - Imaging and Cardiology Imaging: Impressions Chest X-Ray 01/14/18 15:13 CONCLUSION: 1. Trace bilateral pleural effusions with mild left lower lobe airspace consolidation. 2. Cardiomegaly with positive fluid balance. Assessment and Plan - Assessment (1) CHF (congestive heart failure) Code(s): I50.9 - Heart failure, unspecified Status: Acute (2) Hypertension Code(s): I10 - Essential (primary) hypertension Status: Acute (3) CAD (coronary artery disease) Code(s): I25.10 - Atherosclerotic heart disease of [place] coronary artery without angina pectoris Status: Acute (4) HCAP (healthcare-associated pneumonia) Code(s): J18.9 - Pneumonia, unspecified organism Status: Acute (5) Elevated troponin Code(s): R74.8 - Abnormal levels of other serum enzymes Status: Acute - Plan No signs of acute coronary syndrome, continue to monitor. Patient's status is improving, continue current CHF treatment plan. Patient currently does not have LifeVest with him, he states, "it is in the car ". Instructed patient on the importance of wearing LifeVest continuously. We will continue to monitor patient during his hospitalization. He will need an echo next month; if EF still low, ICD should be implanted. He is moving to [place] this month; he will need to find a pigment pusher at his new place. Patient was seen and evaluated by Dr. Duncan who participated in care, management and decision-making. - Attending Attestation Patient seen and examined. I reviewed and agree with the evaluation and plan as presented. Continue tx for CHF. Echo and possibly ICD implant next month. Continue wearing LifeVest. He will find a new pigment pusher in [place] once he moves.
[2018-01-16] MEDS: Metoprolol Tartrate 25 MG Tablet PO SCH ×2 (09:35→20:28)
[2018-01-16] MEDS: Lisinopril 20 MG Tablet PO SCH (09:39)
--- NOTE | 2018-01-16 10:58 | P.PN ---
Subjective Interval history: Patient is resting comfortably in bed. Took off O2 last night and had no problems. Had some SOB when walking to bathroom. Otherwise, no acute concerns. Denies chest pain, headache, vision changes, nausea, vomiting, diarrhea. Physical Exam Vital signs: Vital Signs 01/15/18 11:09 01/15/18 16:00 01/15/18 20:00 Temperature 97.3 F L 98.7 F 98.5 F Pulse Rate 80 90 66 Respiratory Rate 16 16 16 Blood Pressure 151/89 H 136/81 103/65 Pulse Oximetry 96 97 93 L 01/15/18 20:50 01/15/18 22:15 01/16/18 00:00 Temperature 97.5 F L 98.1 F Pulse Rate 83 90 72 Respiratory Rate 18 20 Blood Pressure 117/81 142/96 H Pulse Oximetry 96 93 L 01/16/18 04:00 01/16/18 08:00 01/16/18 09:50 Temperature 97.8 F 97.3 F L Pulse Rate 75 67 Respiratory Rate 20 18 Blood Pressure 151/88 H 156/86 H Pulse Oximetry 94 L 94 L Intake & Output 01/15/18 01/16/18 01/16/18 18:59 06:59 18:59 Intake Total 360 / 360 680 / 680 Output Total 600 / 600 1900 / 1900 Balance -240 / -240 -1220 / -1220 Weight 66.5 kg Intake: Oral 360 / 360 680 / 680 Output: Urine 600 / 600 1900 / 1900 Other: Date of Last Bowel Movement 01/15/18 # Bowel Movements 0 Narrative: GENERAL: 72 year old male in NAD, alert oriented x3. SKIN: Warm and dry. HEAD: Atraumatic. Normocephalic. EYES: Pupils equal and round. No scleral icterus. No injection or drainage. ENT: No nasal bleeding or discharge. Mucous membranes pink and moist. NECK: Trachea midline. No JVD. CARDIOVASCULAR: Regular rate and rhythm. RESPIRATORY: No accessory muscle use. Bibasilar crackles. Breath sounds equal bilaterally. GASTROINTESTINAL: Abdomen soft, non-tender, nondistended. Hepatic and splenic margins not palpable. MUSCULOSKELETAL: Extremities without clubbing, cyanosis, or edema. No obvious deformities. NEUROLOGICAL: Awake and alert. No obvious cranial nerve deficits. Motor grossly within normal limits. Normal speech. PSYCHIATRIC: Appropriate mood and affect; insight and judgment normal. Results - Labs CBC & Chem 7: 01/15/18 04:00 01/16/18 07:52 Laboratory Results - last 24 hr 01/16/18 07:52 Sodium 142 Potassium 3.6 D Chloride 103 Carbon Dioxide 30.4 D Anion Gap 9 BUN 23 H Creatinine 1.19 Estimated GFR 60 L Random Glucose 88 Calcium 9.1 Microbiology 01/14/18 17:35 Blood - Peripheral Aerobic Blood Culture - Preliminary No growth in 1 day 01/14/18 17:35 Blood - Peripheral Anaerobic Blood Culture - Preliminary No growth in 1 day 01/14/18 17:38 Blood - Peripheral Aerobic Blood Culture - Preliminary No growth in 1 day 01/14/18 17:38 Blood - Peripheral Anaerobic Blood Culture - Preliminary No growth in 1 day Assessment and Plan - Plan The patient is a 72-year-old male with history of CAD s/p CABG this year and CHF with EF 20% admitted on 01/14 with acute on chronic CHF exacerbation. Acute on chronic systolic heart failure Secondary to noncompliance with Lasix CXR with trace bilateral pleural effusions, cardiomegaly, and pulmonary edema BNP greater than 4000 Echo on 11/22/17 with EF less than 20% and global hypokinesis Patient noncompliant with LifeVest which was stressed to him Increase Lasix to 60 mg IV BID Cardiology following, f/u outpt Continue metoprolol and lisinopril Atrial fibrillation EKG showing atrial fibrillation CHADSVASc score of 6 Currently rate controlled Thoroughly discuss options of anticoagulation and various risks/benefits Start Eliquis 5 mg twice daily CAD S/p CABG x 3 in August 2017 Troponin 0 0.08, 0.10, 0.10 likely secondary to heart strain acute exacerbation No active chest pain Resume home metoprolol and lisinopril Continue statin Hypertension Continue home lisinopril and metoprolol Continue monitor and titrate medications as needed Chronic urinary incontinence Has been ongoing for over two years and he has not had a urological work-up Continue oxybutynin Follow-up with urology as outpatient Tobacco abuse Cessation counseling provided DVT prophylaxis: Eliquis Discharge Planning: D/C today or tomorrow pending PT
--- NOTE | 2018-01-16 14:54 | P.PN ---
Subjective Interval history: In [facility] SOB with ambulation No fever or chills LE edema improving No n/v/d/c/. Says he has his life vest in his car, encourage to wear it Physical Exam Vital signs: Vital Signs 01/15/18 16:00 01/15/18 20:00 01/15/18 20:50 Temperature 98.7 F 98.5 F 97.5 F L Pulse Rate 90 66 83 Respiratory Rate 16 16 18 Blood Pressure 136/81 103/65 117/81 Pulse Oximetry 97 93 L 96 01/15/18 22:15 01/16/18 00:00 01/16/18 04:00 Temperature 98.1 F 97.8 F Pulse Rate 90 72 75 Respiratory Rate 20 20 Blood Pressure 142/96 H 151/88 H Pulse Oximetry 93 L 94 L 01/16/18 08:00 01/16/18 09:50 01/16/18 12:00 Temperature 97.3 F L 97.1 F L Pulse Rate 64 62 Respiratory Rate 18 18 Blood Pressure 156/86 H 120/59 L Pulse Oximetry 94 L 84 L Intake & Output 01/15/18 01/16/18 01/16/18 18:59 06:59 18:59 Intake Total 360 / 360 680 / 680 Output Total 600 / 600 1900 / 1900 Balance -240 / -240 -1220 / -1220 Weight 66.5 kg Intake: Oral 360 / 360 680 / 680 Output: Urine 600 / 600 1900 / 1900 Other: Date of Last Bowel Movement 01/15/18 01/15/18 # Bowel Movements 0 Narrative: GENERAL: Pleasant 72 year old male in [facility], alert oriented x3. CARDIOVASCULAR: Regular rate and rhythm. RESPIRATORY: No accessory muscle use. Bibasilar crackles. Decreased breath sounds Bilat GASTROINTESTINAL: Abdomen soft, non-tender, nondistended. MUSCULOSKELETAL: Extremities without clubbing, cyanosis. LE edema improving. No obvious deformities. NEUROLOGICAL: Awake and alert. No obvious cranial nerve deficits. Motor grossly within normal limits. Normal speech. PSYCHIATRIC: Appropriate mood and affect; insight and judgment normal. Results - Labs CBC & Chem 7: 01/15/18 04:00 01/16/18 07:52 Laboratory Results - last 24 hr 01/16/18 07:52 Sodium 142 Potassium 3.6 D Chloride 103 Carbon Dioxide 30.4 D Anion Gap 9 BUN 23 H Creatinine 1.19 Estimated GFR 60 L Random Glucose 88 Calcium 9.1 Microbiology 01/14/18 17:35 Blood - Peripheral Aerobic Blood Culture - Preliminary No growth in 2 days 01/14/18 17:35 Blood - Peripheral Anaerobic Blood Culture - Preliminary No growth in 2 days 01/14/18 17:38 Blood - Peripheral Aerobic Blood Culture - Preliminary No growth in 2 days 01/14/18 17:38 Blood - Peripheral Anaerobic Blood Culture - Preliminary No growth in 2 days Assessment and Plan - Assessment (1) Acute on chronic systolic CHF (congestive heart failure) Code(s): I50.23 - Acute on chronic systolic (congestive) heart failure Status : Acute - Plan The patient is a 72-year-old male with history of CAD s/p CABG this year and CHF with EF 20% admitted on 01/14 with acute on chronic CHF exacerbation. Acute on chronic systolic heart failure Secondary to noncompliance with Lasix CXR with trace bilateral pleural effusions, cardiomegaly, and pulmonary edema BNP greater than 4000 Echo on 11/22/17 with EF less than 20% and global hypokinesis Patient noncompliant with LifeVest which was stressed to him Increase Lasix to 60 mg IV BID Cardiology following, f/u outpt Continue metoprolol and lisinopril Atrial fibrillation EKG showing atrial fibrillation CHADSVASc score of 6 Currently rate controlled Thoroughly discuss options of anticoagulation and various risks/benefits Start Eliquis 5 mg twice daily CAD S/p CABG x 3 in August 2017 Troponin 0 0.08, 0.10, 0.10 likely secondary to heart strain acute exacerbation No active chest pain Resume home metoprolol and lisinopril Continue statin Hypertension Continue home lisinopril and metoprolol Continue monitor and titrate medications as needed Chronic urinary incontinence Has been ongoing for over two years and he has not had a urological work-up Continue oxybutynin Follow-up with urology as outpatient Tobacco abuse Cessation counseling provided DVT prophylaxis: Eliquis Discharge Planning: Pending improvement and clearance by cardio, also pending PT eval poss dc tomorrow if cleared by cardio
[2018-01-17] MEDS: Lisinopril 20 MG Tablet PO SCH (08:07)
[2018-01-17] MEDS: Metoprolol Tartrate 25 MG Tablet PO SCH (08:07)
--- NOTE | 2018-01-17 11:10 | P.DS ---
Date of admission: 01/14/18 17:21 Primary care physician: No Primary Care Physician Brief History from admission: The patient is a 72-year-old male with past medical history of CAD status post CABG x3 this year who is presenting to the hospital with shortness of breath. The patient states that he has been unable to sleep for the past 4 nights. He says that he cannot sleep flat on his back without feeling short of breath. He sometimes wakes up in the middle of the night gasping for air. He says he gets short of breath with walking around. He denies any chest pain. He does endorse some foot swelling. He says a month ago he was here and was admitted to observation and discharged on Lasix. He says he has not been taking his Lasix for weeks. He states he has been trying to eat less salt. He does still drink beer regularly. He says he has had urinary incontinence for the past 2 years. He says he saw his heart doctor 1 week ago. He says he is on a LifeVest but does not wear it all of the time. He denies any fevers or mucus production. DS: Diagnosis - Discharge Diagnosis (1) Acute on chronic systolic CHF (congestive heart failure) Status: Acute DS: Medications - Discharge Medications Prescriptions: apixaban [Eliquis] 5 mg PO BID #60 tab furosemide [Lasix] 40 mg PO DAILY #30 tab DS: Summary Hospital Course: The patient is a 72-year-old male with history of CAD s/p CABG this year and CHF with EF 20% admitted on 01/14 with acute on chronic CHF exacerbation. Acute on chronic systolic heart failure Secondary to noncompliance with Lasix CXR with trace bilateral pleural effusions, cardiomegaly, and pulmonary edema BNP greater than 4000 Echo on 11/22/17 with EF less than 20% and global hypokinesis Patient noncompliant with LifeVest which was stressed to him Increase Lasix to 60 mg IV BID Cardiology following, f/u outpt Continue metoprolol and lisinopril Patient currently does not have LifeVest as "it is in the car". Instructed patient on the importance of wearing LifeVest continuously. He expressed understanding. Patient cleared for discharge from cardiac standpoint. He will need an echo next month; if EF still low, ICD should be implanted. He is moving to [place] this month; instructed him on the importance of finding a clay press operator at his new place. Atrial fibrillation EKG showing atrial fibrillation CHADSVASc score of 6 Currently rate controlled Thoroughly discuss options of anticoagulation and various risks/benefits Start Eliquis 5 mg twice daily CAD S/p CABG x 3 in August 2017 Troponin 0 0.08, 0.10, 0.10 likely secondary to heart strain acute exacerbation No active chest pain Resume home metoprolol and lisinopril Continue statin Hypertension Continue home lisinopril and metoprolol Continue monitor and titrate medications as needed Chronic urinary incontinence Has been ongoing for over two years and he has not had a urological work-up Continue oxybutynin Follow-up with urology as outpatient Tobacco abuse Cessation counseling provided Patient improved , DC home in stable condition to follow up as OP with pCP and consultants. - Time Spent with Patient Total time spent providing and/or coordinating discharge services: Greater than 30 minutes - Quality: VTE Deep Vein Thrombosis/Pulmonary Embolism Present on Admission: No Exam Vital signs: Vital Signs 01/16/18 12:00 01/16/18 16:00 01/16/18 20:00 Temperature 97.1 F L 97.3 F L 97.4 F L Pulse Rate 64 79 92 H Respiratory Rate 18 19 18 Blood Pressure 120/59 L 149/85 H 120/55 L Pulse Oximetry 84 L 91 L 91 L 01/17/18 00:00 01/17/18 04:00 01/17/18 08:00 Temperature 98.0 F 97.7 F 97.2 F L Pulse Rate 71 61 73 Respiratory Rate 19 17 19 Blood Pressure 115/59 L 137/56 L 152/88 H Pulse Oximetry 96 95 94 L 01/17/18 09:46 Temperature Pulse Rate Respiratory Rate Blood Pressure Pulse Oximetry 94 L Intake & Output 01/16/18 01/17/18 01/17/18 18:59 06:59 18:59 Intake Total 0 / 0 221 / 221 Output Total 500 / 500 Balance 0 / 0 -279 / -279 Weight 67.5 kg Intake: Oral 221 / 221 Other 0 / 0 Output: Urine 500 / 500 Other: Date of Last Bowel Movement 01/15/18 01/15/18 Narrative: GENERAL: Pleasant 72 year old male in [place], alert oriented x3. CARDIOVASCULAR: Regular rate and rhythm. RESPIRATORY: No accessory muscle use. Bibasilar crackles. Decreased breath sounds Bilat GASTROINTESTINAL: Abdomen soft, non-tender, nondistended. MUSCULOSKELETAL: Extremities without clubbing, cyanosis. LE edema resolved. NEUROLOGICAL: Awake and alert. No obvious cranial nerve deficits. Motor grossly within normal limits. Normal speech. PSYCHIATRIC: Appropriate mood and affect; insight and judgment normal. Results Procedures completed during hospitalization: no procedures Labs on day of discharge: Preliminary micro results at discharge 01/14/18 17:35 Aerobic Blood Culture - Preliminary Blood - Peripheral No growth in 3 days Anaerobic Blood Culture - Preliminary No growth in 3 days 01/14/18 17:38 Aerobic Blood Culture - Preliminary Blood - Peripheral No growth in 3 days Anaerobic Blood Culture - Preliminary No growth in 3 days - Impressions ITS Impressions Chest X-Ray 01/14/18 15:13 CONCLUSION: 1. Trace bilateral pleural effusions with mild left lower lobe airspace consolidation. 2. Cardiomegaly with positive fluid balance. Discharge Plan - Discharge Disposition Patient Disposition: /Home Health Service - Discharge Condition Condition: Stable - Discharge Order Discharge Orders: Discharge Order (Routine); Ordered 01/17/18 Ordered By: Celestina Carter - Discharge Details Anticipated Discharge Date: 01/17/18 - Physicians Team Primary Care Provider: Primary Care Maryanne Ferreira Attending Provider: Celestina Carter Other Providers: Josie Duncan MD
--- NOTE | 2018-01-17 11:37 | P.PN ---
Subjective Interval history: Patient is resting comfortably. Feels tired, but is breathing much better. Denies chest pain, SOB, nausea, vomiting, headache. Physical Exam Vital signs: Vital Signs 01/16/18 12:00 01/16/18 16:00 01/16/18 20:00 Temperature 97.1 F L 97.3 F L 97.4 F L Pulse Rate 64 79 92 H Respiratory Rate 18 19 18 Blood Pressure 120/59 L 149/85 H 120/55 L Pulse Oximetry 84 L 91 L 91 L 01/17/18 00:00 01/17/18 04:00 01/17/18 08:00 Temperature 98.0 F 97.7 F 97.2 F L Pulse Rate 71 61 73 Respiratory Rate 19 17 19 Blood Pressure 115/59 L 137/56 L 152/88 H Pulse Oximetry 96 95 94 L 01/17/18 09:46 Temperature Pulse Rate Respiratory Rate Blood Pressure Pulse Oximetry 94 L Intake & Output 01/16/18 01/17/18 01/17/18 18:59 06:59 18:59 Intake Total 0 / 0 221 / 221 Output Total 500 / 500 Balance 0 / 0 -279 / -279 Weight 67.5 kg Intake: Oral 221 / 221 Other 0 / 0 Output: Urine 500 / 500 Other: Date of Last Bowel Movement 01/15/18 01/15/18 Narrative: GENERAL: Pleasant 72 year old male in [place], alert oriented x3. CARDIOVASCULAR: Regular rate and rhythm. RESPIRATORY: No accessory muscle use. Bibasilar crackles. Decreased breath sounds Bilat GASTROINTESTINAL: Abdomen soft, non-tender, nondistended. MUSCULOSKELETAL: Extremities without clubbing, cyanosis. LE edema resolved. NEUROLOGICAL: Awake and alert. No obvious cranial nerve deficits. Motor grossly within normal limits. Normal speech. PSYCHIATRIC: Appropriate mood and affect; insight and judgment normal. Results - Labs CBC & Chem 7: 01/15/18 04:00 01/16/18 07:52 Microbiology 01/14/18 17:35 Blood - Peripheral Aerobic Blood Culture - Preliminary No growth in 3 days 01/14/18 17:35 Blood - Peripheral Anaerobic Blood Culture - Preliminary No growth in 3 days 01/14/18 17:38 Blood - Peripheral Aerobic Blood Culture - Preliminary No growth in 3 days 01/14/18 17:38 Blood - Peripheral Anaerobic Blood Culture - Preliminary No growth in 3 days Assessment and Plan - Plan The patient is a 72-year-old male with history of CAD s/p CABG this year and CHF with EF 20% admitted on 01/14 with acute on chronic CHF exacerbation. Acute on chronic systolic heart failure Secondary to noncompliance with Lasix CXR with trace bilateral pleural effusions, cardiomegaly, and pulmonary edema BNP greater than 4000 Echo on 11/22/17 with EF less than 20% and global hypokinesis Patient noncompliant with LifeVest which was stressed to him Increase Lasix to 60 mg IV BID Cardiology following, f/u outpt Continue metoprolol and lisinopril Atrial fibrillation EKG showing atrial fibrillation CHADSVASc score of 6 Currently rate controlled Thoroughly discuss options of anticoagulation and various risks/benefits Start Eliquis 5 mg twice daily CAD S/p CABG x 3 in August 2017 Troponin 0 0.08, 0.10, 0.10 likely secondary to heart strain acute exacerbation No active chest pain Resume home metoprolol and lisinopril Continue statin Hypertension Continue home lisinopril and metoprolol Continue monitor and titrate medications as needed Chronic urinary incontinence Has been ongoing for over two years and he has not had a urological work-up Continue oxybutynin Follow-up with urology as outpatient Tobacco abuse Cessation counseling provided DVT prophylaxis: Eliquis Discharge Planning: D/C today to home
--- NOTE | 2018-01-17 15:39 | P.PNCA ---
Subjective Interval history: Patient denies any chest pain, pressure, palpitations, dizziness, edema or shortness of breath. Medications and Allergies Allergies Allergy/AdvReac Type Severity Reaction Status Date / Time No Known Allergies Allergy Verified 01/14/18 14:55 Home Medications Medication Instructions Recorded Confirmed Type atorvastatin 10 mg PO HS 01/14/18 01/14/18 History lisinopril 20 mg PO DAILY 01/14/18 01/14/18 History metoprolol tartrate 25 mg PO BID 01/14/18 01/14/18 History oxybutynin chloride 2.5 mg PO BID 01/14/18 01/14/18 History Physical Exam Vital signs: Vital Signs 01/16/18 16:00 01/16/18 20:00 01/17/18 00:00 Temperature 97.3 F L 97.4 F L 98.0 F Pulse Rate 79 92 H 71 Respiratory Rate 19 18 19 Blood Pressure 149/85 H 120/55 L 115/59 L Pulse Oximetry 91 L 91 L 96 01/17/18 04:00 01/17/18 08:00 01/17/18 09:46 Temperature 97.7 F 97.2 F L Pulse Rate 61 73 Respiratory Rate 17 19 Blood Pressure 137/56 L 152/88 H Pulse Oximetry 95 94 L 94 L Intake & Output 01/16/18 01/17/18 01/17/18 18:59 06:59 18:59 Intake Total 0 / 0 221 / 221 Output Total 500 / 500 Balance 0 / 0 -279 / -279 Weight 67.5 kg Intake: Oral 221 / 221 Other 0 / 0 Output: Urine 500 / 500 Other: Date of Last Bowel Movement 01/15/18 01/15/18 - Constitutional no acute distress - Routine HEENT Exam Head: Present: normocephalic Eye: Present: PERRL ENT: Present: mucous membranes moist - Routine Neck Exam Present: full ROM - Routine Respiratory Exam Present: CTA bilaterally - Routine Cardiovascular Exam Present: S1, S2. Absent: gallop, rubs Comments: Patient has LifeVest that he wears intermittently - Routine Abdominal Exam Present: normoactive bowel sounds - Routine Extremities Exam Present: full ROM, pulses intact, normal capillary refill. Absent: cyanosis, clubbing, edema - Routine Skin Exam Present: intact - Routine Neurological Exam Present: oriented X3 - Detailed Neurological Exam: Coma Scale Eye Opening: Spontaneous Verbal Response: Oriented Motor Response: Obey commands [place] Coma Scale Total: 15 - Routine Psychiatric Exam Present: normal affect Results 01/15/18 04:00 01/16/18 07:52 Comprehensive Metabolic Panel 01/16/18 Range/Units 07:52 Sodium 142 (136-145) meq/L Potassium 3.6 D (3.5-5.1) meq/L Chloride 103 (98-107) meq/L Carbon Dioxide 30.4 D (21.0-32.0) meq/L BUN 23 H (7-18) mg/dL Creatinine 1.19 (0.60-1.30) mg/dL Calcium 9.1 (8.5-10.1) mg/dL Intake and Output 01/17/18 01/17/18 01/17/18 06:59 14:59 22:59 Intake Total 221 / 221 Output Total 500 / 500 Balance -279 / -279 Intake: Oral 221 / 221 Output: Urine 500 / 500 Other: Date of Last Bowel Movement 01/15/18 Weight 67.5 kg Assessment and Plan - Assessment (1) CHF (congestive heart failure) Code(s): I50.9 - Heart failure, unspecified Status: Acute (2) Hypertension Code(s): I10 - Essential (primary) hypertension Status: Acute (3) CAD (coronary artery disease) Code(s): I25.10 - Atherosclerotic heart disease of [place] coronary artery without angina pectoris Status: Acute (4) HCAP (healthcare-associated pneumonia) Code(s): J18.9 - Pneumonia, unspecified organism Status: Acute (5) Elevated troponin Code(s): R74.8 - Abnormal levels of other serum enzymes Status: Acute - Plan Continue to monitor on telemetry, no signs of acute coronary syndrome at this time. Continue current CHF treatment plan. Patient currently does not have LifeVest with him, he states, "it is in the car ". Instructed patient on the importance of wearing LifeVest continuously. Patient cleared for discharge from cardiac standpoint. He will need an echo next month; if EF still low, ICD should be implanted. He is moving to [place] this month; we instructed him on the importance of finding a fieldwork coordinator at his new place. Patient was seen and evaluated by Dr. Duncan who participated in care, management and decision-making. - Attending Attestation Patient seen and examined. I reviewed and agree with the evaluation and plan as presented. CHF improved. OK to discharge home from cardiac standpoint. He is moving to [place] and was instructed to find a new fieldwork coordinator at his new home.
== END 2018-01-17 12:29 | disposition home health service (06) ==
LOC: NEPC 14:38 → NEDA 17:21 → NEPFCDU 21:46 → N04 01-15 21:20
PROVIDERS: ADMIT Hospitalist; ATTEND Hospitalist